=== PATIENT | female | born 1950 | race Caucasian/White ===

== ENCOUNTER 2019-07-19 16:14 | Inpatient (IN) | payer MEDICARE, BC, OTHER, SELFPAY ==
[2019-07-19 14:26] VITALS: BMI 35.9
[2019-07-19 16:15] VITALS: TEMP 36.7; BMI 35.4
[2019-07-19 16:25] VITALS: BP 160/56; PULSE 53; RESP 18; O2SAT 99
--- NOTE | 2019-07-19 16:34 | RAD_ITS ---
STUDY: X-RAY - PELVIS AND LEFT HIP REASON FOR EXAM: Female, 69 years old. Trauma TECHNIQUE: 3 views of the pelvis and hip. COMPARISON: None. FINDINGS: Nondisplaced fracture of the left inferior pubic rami. Questionable nondisplaced fracture of the superior pubic ramus medially adjacent to the pubic symphysis. Total left hip arthroplasty. RAD/HIP, UNI W/ Pelvis 2-3 Views IMPRESSION: Likely acute left pubic rami fractures, as above. Definitive evaluation may be considered with CT as evaluation is somewhat limited by osteopenia. Electronically Signed: Bienvenido Vail, at 17:28 EDT Tel , Service support ,
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
[2019-07-19] MEDS: HYDROcodone Bitartrate/Apap 5/325 Tablet PO (16:39)
--- NOTE | 2019-07-19 18:47 | CM.ED ---
Social Work Consult: D/C Planning Informant: Dr. Ramos Per Dr. Ramos patient is medially cleared but stating to be unable to walk at this time and thus unable to return to home. Met with patient and patient spouse in room. Patient stating to live with spouse in a 1-story home with x2 steps to enter the home. Patient used a cane/walker to get from car to the 2 steps and into the home but after patient is in the home patient is wheelchair bound. Patient stating to believe that patient is unable to perform transfers at this time and will need to go somewhere. Patient stating to have been in [facility] one year ago. Patient stating to be active with [facility]. Patient stating to use a Bi-pap at home. Patient aware that due to time of day unable to complete SNF transfer/placement at this time. Patient to have continued follow-up for placement. Jeronimo Trevino MSW, GARIMA
[2019-07-19 18:48] VITALS: BMI 35.4
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
[2019-07-19 18:50] VITALS: BP 159/68; PULSE 53; RESP 18; O2SAT 99
[2019-07-19 19:09] VITALS: BP 162/64; PULSE 52; RESP 16; O2SAT 95
[2019-07-19 20:06] VITALS: BP 145/58; PULSE 52; RESP 16; TEMP 37.1; O2SAT 96
[2019-07-19 20:15] VITALS: BMI 36.1
[2019-07-19 20:20] VITALS: PULSE 52; RESP 16; O2SAT 97
[2019-07-19] MEDS: oxyCODONE 5 MG Tablet PO (20:57)
[2019-07-19 21:45] LABS: Bedside Glucose 121 mg/dL (70-110)
[2019-07-19] MEDS: Ranolazine 500 MG Tablet 1000 MG PO (21:46)
[2019-07-19] MEDS: Atorvastatin Calcium 10 MG Tablet PO (21:47)
[2019-07-19] MEDS: Pantoprazole Sodium 40 MG Tablet PO (21:47)
[2019-07-19] MEDS: Cholestyramine/Sucrose 4 GM/PACKET PO (21:47)
[2019-07-20] VITALS (7 sets, daily range): BP systolic 129–169; BP diastolic 56–72; PULSE 52–60; RESP 16–20; TEMP 36.9–37.6; O2SAT 97–98
[2019-07-20] MEDS: Levothyroxine 75 MCG Tablet PO (06:05)
[2019-07-20 06:52] LABS: Absolute Lymphocyte Count 0.58 X10^3/uL (0.83-4.51); Absolute Neutrophil Count 2.9 X10^3/uL (2.0-7.7); Eosinophil# 0.07 X10^3/uL; Eosinophils% 1.8 % (0-5); Hematocrit 20.8 % (37-47); Hemoglobin 6.5 g/dL (12.0-15.0); Lymphocyte # 0.58 X10^3/ul (4.0); Lymphocyte % 15.3 % (19-41); Mean Corp Hgb Conc 31.3 g/dL (32-36); Mean Corpuscular Hgb 30.2 pg (27.0-32.0); Mean Corpuscular Volume 96.7 fL (81-99); Mean Platelet Vol. 9.7 fl (6.2-12.0); Monocyte# 0.21 X10^3/uL; Monocyte% 5.5 % (0-10); NRBC Flagged by Analyzer 0 % (0-5); Neutrophil # 2.89 X10^3/uL (2.7-7.7); Neutrophil % 76.3 % (47-70); POSITIVE DIFFERENTIAL YES; Platelet Count 128 K/mm3 (150-450); RBC Distribution Width CV 16.3 % (11.6-14.6); RBC Distribution Width SD 56.9 fl (35.1-43.9); Red Blood Count 2.15 M/mm3 (4.2-5.4); White Blood Count 3.8 K/mm3 (4.4-11.0)
[2019-07-20 06:56] LABS: Bedside Glucose 128 mg/dL (70-110)
[2019-07-20 06:59] LABS: Differential Indicated SCAN CRITERIA MET
[2019-07-20 07:08] LABS: Anion Gap 7 (5-15); BUN 42 mg/dL (7-18); BUN/Creat Ratio 14.9 RATIO (10-20); Calcium,Total 8.2 mg/dL (8.5-10.1); Chloride 119 mmol/L (98-107); Creatinine, Serum 2.81 mg/dL (0.55-1.02); EST Glomerular Filtration Rate 18 mL/min (>60); Est Glom Filt Rate - Afr Amer 22 mL/min (>60); Glucose 131 mg/dL (74-106); Potassium 5.2 mmol/L (3.5-5.1); Sodium Level 142 mmol/L (136-145)
[2019-07-20 07:21] LABS: Differential Comment SCANNED; Hypochromasia 1+; Macrocytosis 1+; Microcytosis 2+
--- NOTE | 2019-07-20 07:31 | PCM.PROGNOTE ---
Patient Problems: Active and Suspected Problems (Last Updated 07/19/19 @ 14:44 by Viv Toribio) Pancytopenia (Acute) Lymphadenopathy, axillary (Acute) Subjective: CC: Left hip pain Patient is a 69-year-old lady who presented with hip pain following a fall. She was found to have nondisplaced left inferior and superior pubic rami fracture admitted to regular nursing for further management Objective: GENERAL: cooperative HEENT: Atraumatic; EYES; Anicteric, Normal Conjunctiva NECK; supple, normal thyroid, RESPIRATORY: Diminished to auscultation CARDIOVASCULAR: Regular S1 S2, GI: soft, normoactive bowel sounds, : No Renal angle tenderness; EXTREMITIES: No edema, no clubbing, MUSCULOSKELETAL: no muscle waisting NEURO: Awake; no lateralizing signs. SKIN: No Rash PSYCH; Flat affect - Physical Exam Vitals/I&O's: Vital Signs Temp Pulse Resp BP Pulse Ox 98.8 F 55 L 16 139/72 H 98 07/20/19 02:01 07/20/19 04:17 07/20/19 02:01 07/20/19 02:01 07/20/19 02:01 Oxygen Flow Rate (L/min) 2 Oxygen Delivery Method Nasal Cannula Weight: 98.6 kg Body Mass Index (BMI) 36.1 Intake and Output for Last 24 Hours 07/18/19 07/19/19 07/20/19 23:59 23:59 23:59 Intake Total 500 / 500 Output Total 200 / 200 Balance 300 / 300 Laboratory Results 07/19/19 21:38: POC Glucose 121 H 07/20/19 05:58: WBC 3.8 L, RBC 2.15 L, Hgb 6.5 L, Hct 20.8 L, MCV 96.7, MCH 30.2, MCHC 31.3 L, RDW Std Deviation 56.9 H, RDW Coeff of Rachel 16.3 H, Plt Count 128 L, MPV 9.7, Immature Gran % (Auto) 1.100 H, Neut % (Auto) 76.3 H, Lymph % (Auto) 15.3 L, [place] % (Auto) 5.5, Eos % (Auto) 1.8, Baso % (Auto) 0.0, Absolute Neuts (auto) 2.9, Absolute Lymphs (auto) 0.58 L, Nucleated RBC % 0, Differential Comment SCANNED, Diff Path Review May foll, Hypochromasia 1+, Microcytosis 2+, Macrocytosis 1+ 07/20/19 05:58: Sodium 142, Potassium 5.2 H, Chloride 119 H, Carbon Dioxide 16.0 L, Anion Gap 7, BUN 42 H, Creatinine 2.81 H, Estim Creat Clear Calc 17.00, Est GFR (MDRD) Af Amer 22 L, Est GFR (MDRD) Non-Af 18 L, BUN/Creatinine Ratio 14.9, Glucose 131 H, Calcium 8.2 L 07/20/19 06:52: POC Glucose 128 H Current Medications Amlodipine Besylate (Norvasc) 5 mg PO DAILY [facility] Atenolol (Tenormin (Beta Tessa)) 100 mg PO DAILY [facility] Atorvastatin Calcium (Lipitor) 10 mg PO QHS [facility] Last Admin: 07/19/19 21:47 Dose: 10 mg Documented by: Cholestyramine Resin (Questran 4gm Packet) 4 gm PO BID [facility] Last Admin: 07/19/19 21:47 Dose: 4 gm Documented by: Clopidogrel Bisulfate (Plavix) 75 mg PO DAILY [facility] Dextrose (D50w Syringe) 0 gm IV X1 PRN; Protocol PRN Reason: Hypoglycemia Furosemide (Lasix) 40 mg PO DAILY PRN PRN Reason: SWELLING Glucagon () 1 mg IM .X1 PRN PRN Reason: Hypoglycemia Insulin Human Lispro (Humalog Kwikpen (Bkc)) 0 unit SC ACHS [facility]; Protocol Last Admin: 07/20/19 06:54 Dose: Not Given Documented by: Isosorbide Mononitrate (Imdur) 120 mg PO DAILY [facility] Levothyroxine Sodium (Synthroid) 75 mcg PO DAILY@0600 [facility] Last Admin: 07/20/19 06:05 Dose: 75 mcg Documented by: Linagliptin (Tradjenta) 5 mg PO DAILY [facility] Melatonin (Melatonin) 3 mg PO QHS PRN PRN Reason: SLEEP Morphine Sulfate () 2 mg IV Q3H PRN PRN PRN Reason: Pain Score 6-10/10 Nitroglycerin (Nitro-Dur) 0.4 mg TRANSDERM. DAILY [facility] Nitroglycerin (Nitrostat) 0.4 mg SUBLINGUAL Q5M PRN PRN Reason: ANGINA Nutritional Formula (Lactose Free) (Glucerna Shake) 120 ml PO 4X/DAY [facility] Last Admin: 07/19/19 21:39 Dose: Not Given Documented by: Oxycodone HCl (Oxyir) 5 mg PO Q4H PRN PRN PRN Reason: Pain Score 4-5/10 Last Admin: 07/19/19 20:57 Dose: 5 mg Documented by: Pantoprazole Sodium (Protonix) 40 mg PO BID [facility] Last Admin: 07/19/19 21:47 Dose: 40 mg Documented by: Paroxetine HCl (Paxil) 30 mg PO DAILY [facility] Promethazine HCl (Phenergan Suppository) 25 mg RECTAL Q4H PRN PRN PRN Reason: NAUSEA Promethazine HCl (Phenergan Tablet) 25 mg PO Q6H PRN PRN PRN Reason: NAUSEA Ranolazine (Ranexa) 1,000 mg PO BID [facility] Last Admin: 07/19/19 21:46 Dose: 1,000 mg Documented by: Sodium Chloride () 10 - 40 ml IV UD PRN PRN Reason: SALINE FLUSH Medical Necessity - Tobacco Use Smoking Status: Never smoker Tobacco Use: Non-smoker, Secondhand Assessment/Plan All Active Problems (Last Updated 07/19/19 @ 14:44 by Viv Toribio) Pancytopenia (Acute) Lymphadenopathy, axillary (Acute) Patient is a 69-year-old lady who presented with hip pain following a fall. She was found to have nondisplaced left inferior and superior pubic rami fracture admitted to regular nursing for further management 1. Non-syncopal mechanical fall -with resultant Nondisplaced left inferior and superior pubic rami fracture admitted to regular nursing floor for pain management. Also requested for PT OT eval as well as director of social media marketing to assist with disposition 2. Physical debility due to above -Management as discussed above 3. Pancytopenia ?Patient is being followed by oncology with she is currently being worked up 4. Hypertension ~ blood pressure controlled, home medications continued with dose adjustment as needed 5. Hypothyroidism ~patient is on levothyroxine home dose continued 6. Chronic kidney disease stage IV with baseline creatinine of 2.8 7. Hyperkalemia secondary to above Subsequent lab ordered for monitoring with plans to treat aggressively if potassium levels continue to rise 8. Diabetes mellitus type II ~Complications including diabetic nephropathy, placed on long acting insulin, Accu-Cheks a.c. and at bedtime and covered with sliding scale insulin 9. Obstructive sleep apnea on CPAP at night 10. Coronary artery disease -With previous CABG and subsequent stent placement 11. Obesity with BMI of 36.2 Weight loss advised 12. DVT prophylaxis SCDs Code Visit OBSV E&M: 90849 Subsequent observation care L3
[2019-07-20] MEDS: LINAGLIPTIN 5 MG TABLET PO (09:08)
[2019-07-20] MEDS: oxyCODONE 5 MG Tablet PO ×2 (09:08→17:14)
[2019-07-20] MEDS: amLODIPine 5 MG Tablet PO (09:09)
[2019-07-20] MEDS: PARoxetine 10 MG Tablet 30 MG PO (09:09)
[2019-07-20] MEDS: Glucerna Shake 120 ML LIQUID PO ×2 (09:10→12:42)
[2019-07-20] MEDS: Ranolazine 500 MG Tablet 1000 MG PO ×2 (09:11→21:46)
[2019-07-20] MEDS: Pantoprazole Sodium 40 MG Tablet PO ×2 (09:12→21:46)
[2019-07-20] MEDS: Atenolol 100 MG Tablet PO (09:13)
[2019-07-20] MEDS: Clopidogrel Bisulfate 75 MG Tablet PO (09:17)
--- NOTE | 2019-07-20 10:30 | CASEMGMT ---
Addendum entered by Rita Parks 07/20/19 10:54: SW had the thought that maybe pt could go to at discharge. SW placed a call to Siena with [facility] who states she has no beds available on and won't have any until Wednesday of next week. Original Note: Social Work Assessment Referral Date: 07/19/2019 Date of Assessment: 07/20/2019 Reason for consult: SNF placement Informant: SW Personal Status: SW met with pt and introduced self and role at [facility]. Pt is alert and orientated x3, has guest present in room. Pt gave this worker permission to speak to her in front of her guest. Pt states that she lives with her and grandson in a one story home with about 3 steps to enter. Pt states she does have a basement in the home. PCP is Dr. Michael Moraes and preferred pharmacy is [facility] in [place], [place]. DME include cane, walker and wheelchair. Pt states that she was previously independent with [facility] and states that she has been using her wheelchair more at home as she fell last week. Pt states that she doesn't use oxygen at home and states she only uses a c-pap at home. Pt states that she has a nurse that comes in once a week through [facility]. Pt states that she went to [facility] last year. Substance Abuse Hx: Pt denied Mental Health Hx: Pt denied SW spoke with pt regarding discharge plans. Pt states well I should probably go to a SNF. SW educated pt on Medicare guidelines and three midnight stay at [facility]. SW informed pt that there has to be a medical reason to keep pt three midnights and at this time, physician states pt will not get qualifying stay. SW explained that going to a SNF will be private pay then if pt doesn't need three midnight stay. Pt states well I guess I will be going home then. SW explained pending medicaid but informs pt that this worker cannot guarantee pt will get approved medicaid and then it will also be private pay. Pt states I probably won't get approved for medicaid. SW educated pt on HHC with PT/OT but informed pt that HHC won't be in everyday. SW spoke with pt regarding private duty aides. SW informed pt that PT/OT will work with pt and make recommendations for pt. SW informed pt that once PT/OT works with pt this worker will be back in to speak with pt regarding discharge plans. Pt states understanding, denied additional needs or concerns at this time. Plan: TBD. Pt will likely not get qualifying stay for Medicare to go to SNF. Pt states she will not pay privately for SNF. PT/OT to work with pt and make recommendations. Rita Parks AIR QUALITY INSTRUMENT SPECIALIST, HYGIENE COORDINATOR
[2019-07-20 10:55] LABS: Bedside Glucose 122 mg/dL (70-110)
[2019-07-20 13:15] LABS: Pathologist Review Reviewed
--- NOTE | 2019-07-20 15:51 | CASEMGMT ---
Addendum entered by Rita Parks 07/20/19 16:47: SW received call from Kika at [facility] stating she is able to accept pt. SW informed Kika that this worker is not sure if pt will get qualifying stay under Medicare or if it will be private pay. SW informed Kika that this worker will know more tomorrow. Original Note: Social Work Note SW spoke with PT/OT who are recommending SNF for pt as pt was assist of two. SW met with pt. SW informed pt that PT/OT are recommending SNF but again informed pt that that doesn't guarantee pt will get three midnight stay in hospital to pay for SNF. SW informed pt that physician could tell pt tomorrow that she is medically cleared for discharge and then pt would need to pay privately for SNF. SW asked pt if she is able to afford private pay for SNF. Pt states she will need to speak with her about private pay. SW provided pt with list of SNF that accept pt's insurance. Pt states she would like a referral sent [facility]. SW attempted to call [facility] twice but there was no answer. SW faxed referral to [facility]. Physician updated. Plan: [facility] pending acceptance. If pt discharges before Wednesday to SNF it will be private pay for SNF. Rita Parks TAILINGS DAM LABORER, ENTREPRENEURIAL FINANCE PROFESSOR
--- NOTE | 2019-07-20 15:54 | CASEMGMT ---
TOÑO QUEEN NOTE: Call placed to [facility] and notified them of pt admission and possible SNF @ d/c. CM to follow and update [facility] of d/c plan. [facility]: PH: [phone] Rogerio GREEN RN CM
[2019-07-20 16:01] LABS: Bedside Glucose 144 mg/dL (70-110)
--- NOTE | 2019-07-20 16:06 | CHAPLAIN ---
Type of Pastoral Visit _x__ Initial Visit ___ Follow-up Visit ___ On-call Visit ___ General Patient Visit ___ Spiritual Assessment ___ Family Conference ___ Bereavement ___ Rapid Response ___ Code Blue ___ Other (describe below) Pastoral Care Referral From _x__ Patient ___ Family ___ Nurse ___ Physician ___ Marketing Technologist ___ Building Tech ___ Other (describe below) Sacrament/Intervention _x__ Active listening ___ Anointing ___ Muslim ___ Bereavement ___ Communion ___ Julia exploration ___ _x__ Life review _x__ Prayer ___ Reconciliation ___ Sacrament of Sick _x__ Supportive presence ___ Wedding ___ Other (describe below) Pastoral Comments
[2019-07-20] MEDS: Morphine 2 MG/ML Syringe IV (20:15)
[2019-07-20] MEDS: 0.9% Saline Lock 10 ML Syringe IV (20:16)
[2019-07-20] MEDS: Atorvastatin Calcium 10 MG Tablet PO (21:46)
[2019-07-20 23:16] LABS: Bedside Glucose 134 mg/dL (70-110)
[2019-07-21] VITALS (10 sets, daily range): BP systolic 131–168; BP diastolic 48–74; PULSE 48–52; RESP 16–20; TEMP 36.8–37.3; O2SAT 90–100
--- NOTE | 2019-07-21 02:35 | CPS ---
bled in 2 lpm oxygen into CPAP
[2019-07-21] MEDS: Levothyroxine 75 MCG Tablet PO (05:19)
[2019-07-21 06:35] LABS: Absolute Lymphocyte Count 0.91 X10^3/uL (0.83-4.51); Absolute Neutrophil Count 2.4 X10^3/uL (2.0-7.7); Eosinophil# 0.09 X10^3/uL; Eosinophils% 2.5 % (0-5); Hematocrit 21.4 % (37-47); Hemoglobin 6.5 g/dL (12.0-15.0); Lymphocyte # 0.91 X10^3/ul (4.0); Lymphocyte % 25.1 % (19-41); Mean Corp Hgb Conc 30.4 g/dL (32-36); Mean Corpuscular Hgb 30.1 pg (27.0-32.0); Mean Corpuscular Volume 99.1 fL (81-99); Mean Platelet Vol. 10.1 fl (6.2-12.0); Monocyte# 0.21 X10^3/uL; Monocyte% 5.8 % (0-10); NRBC Flagged by Analyzer 0.6 % (0-5); Neutrophil # 2.39 X10^3/uL (2.7-7.7); Neutrophil % 65.8 % (47-70); Platelet Count 118 K/mm3 (150-450); RBC Distribution Width CV 16.3 % (11.6-14.6); RBC Distribution Width SD 57.3 fl (35.1-43.9); Red Blood Count 2.16 M/mm3 (4.2-5.4); White Blood Count 3.6 K/mm3 (4.4-11.0)
[2019-07-21 06:55] LABS: Anion Gap 9 (5-15); BUN 50 mg/dL (7-18); BUN/Creat Ratio 14.2 RATIO (10-20); Chloride 118 mmol/L (98-107); Creatinine, Serum 3.53 mg/dL (0.55-1.02); EST Glomerular Filtration Rate 14 mL/min (>60); Est Glom Filt Rate - Afr Amer 17 mL/min (>60); Estimated Creatinine Clearance 13.53 ml/min; Glucose 118 mg/dL (74-106); Magnesium 1.8 mg/dL (1.6-2.6); Potassium 5.4 mmol/L (3.5-5.1); Sodium Level 140 mmol/L (136-145)
[2019-07-21 07:01] LABS: Bedside Glucose 109 mg/dL (70-110)
--- NOTE | 2019-07-21 07:31 | PN_ITS ---
Patient Problems: Active and Suspected Problems (Last Updated 07/19/19 @ 14:44 by Viv Toribio) Pancytopenia (Acute) Lymphadenopathy, axillary (Acute) Subjective: CC follow-up pelvic fracture Patient seen hemoglobin is down to 6.5, platelets 118 with potassium up to 5.4 Objective: GENERAL: cooperative HEENT: Atraumatic; EYES; Anicteric, Normal Conjunctiva NECK; supple, normal thyroid, RESPIRATORY: Diminished to auscultation CARDIOVASCULAR: Regular S1 S2, GI: soft, normoactive bowel sounds, : No Renal angle tenderness; EXTREMITIES: No edema, no clubbing, MUSCULOSKELETAL: no muscle waisting NEURO: Awake; no lateralizing signs. SKIN: No Rash PSYCH; Flat affect Vitals/I&O's: Vital Signs Temp Pulse Resp BP Pulse Ox 98.6 F 49 L 18 154/61 H 97 07/21/19 05:17 07/21/19 05:17 07/21/19 05:17 07/21/19 05:17 07/21/19 05:17 Oxygen Flow Rate (L/min) 2 Oxygen Delivery Method CPAP Weight: 98.6 kg Body Mass Index (BMI) 36.1 Intake and Output for Last 24 Hours 07/19/19 07/20/19 07/21/19 23:59 23:59 23:59 Intake Total 740 / 1220 780 / 780 Output Total 200 / 200 200 / 200 Balance 540 / 1020 580 / 580 Laboratory Results 07/20/19 05:58: Diff Path Review Reviewed 07/20/19 10:46: POC Glucose 122 H 07/20/19 15:56: POC Glucose 144 H 07/20/19 21:39: POC Glucose 134 H 07/21/19 05:44: WBC 3.6 L, RBC 2.16 L, Hgb 6.5 L, Hct 21.4 L, MCV 99.1 H, MCH 30.1, MCHC 30.4 L, RDW Std Deviation 57.3 H, RDW Coeff of Rachel 16.3 H, Plt Count 118 L, MPV 10.1, Immature Gran % (Auto) 0.800, Neut % (Auto) 65.8, Lymph % (Auto) 25.1, [place] % (Auto) 5.8, Eos % (Auto) 2.5, Baso % (Auto) 0.0, Absolute Neuts (auto) 2.4, Absolute Lymphs (auto) 0.91, Nucleated RBC % 0.6 07/21/19 05:44: Sodium 140, Potassium 5.4 H, Chloride 118 H, Carbon Dioxide 13.0 L, Anion Gap 9, BUN 50 H, Creatinine 3.53 H, Estim Creat Clear Calc 13.53, Est GFR (MDRD) Af Amer 17 L, Est GFR (MDRD) Non-Af 14 L, BUN/Creatinine Ratio 14.2, Glucose 118 H, Calcium 8.0 L, Magnesium 1.8 07/21/19 06:46: POC Glucose 109 Current Medications Amlodipine Besylate (Norvasc) 5 mg PO DAILY [facility] Last Admin: 07/20/19 09:09 Dose: 5 mg Documented by: Atenolol (Tenormin (Beta Tessa)) 100 mg PO DAILY [facility] Last Admin: 07/20/19 09:13 Dose: 100 mg Documented by: Atorvastatin Calcium (Lipitor) 10 mg PO QHS [facility] Last Admin: 07/20/19 21:46 Dose: 10 mg Documented by: Cholestyramine Resin (Questran 4gm Packet) 4 gm PO BID [facility] Last Admin: 07/20/19 21:49 Dose: Not Given Documented by: Clopidogrel Bisulfate (Plavix) 75 mg PO DAILY [facility] Last Admin: 07/20/19 09:17 Dose: 75 mg Documented by: Dextrose (D50w Syringe) 0 gm IV X1 PRN; Protocol PRN Reason: Hypoglycemia Furosemide (Lasix) 40 mg PO DAILY PRN PRN Reason: SWELLING Glucagon () 1 mg IM .X1 PRN PRN Reason: Hypoglycemia Insulin Human Lispro (Humalog Kwikpen (Bkc)) 0 unit SC [facility]; Protocol Last Admin: 07/21/19 07:01 Dose: Not Given Documented by: Isosorbide Mononitrate (Imdur) 120 mg PO DAILY [facility] Last Admin: 07/20/19 09:12 Dose: 120 mg Documented by: Levothyroxine Sodium (Synthroid) 75 mcg PO DAILY@0600 [facility] Last Admin: 07/21/19 05:19 Dose: 75 mcg Documented by: Linagliptin (Tradjenta) 5 mg PO DAILY [facility] Last Admin: 07/20/19 09:08 Dose: 5 mg Documented by: Melatonin (Melatonin) 3 mg PO QHS PRN PRN Reason: SLEEP Morphine Sulfate () 2 mg IV Q3H PRN PRN PRN Reason: Pain Score 6-10/10 Last Admin: 07/20/19 20:15 Dose: 2 mg Documented by: Nitroglycerin (Nitro-Dur) 0.4 mg TRANSDERM. DAILY [facility] Last Admin: 07/20/19 09:14 Dose: 0.4 mg Documented by: Nitroglycerin (Nitrostat) 0.4 mg SUBLINGUAL Q5M PRN PRN Reason: ANGINA Nutritional Formula (Lactose Free) (Glucerna Shake) 120 ml PO 4X/DAY [facility] Last Admin: 07/20/19 21:42 Dose: Not Given Documented by: Oxycodone HCl (Oxyir) 5 mg PO Q4H PRN PRN PRN Reason: Pain Score 4-5/10 Last Admin: 07/20/19 17:14 Dose: 5 mg Documented by: Pantoprazole Sodium (Protonix) 40 mg PO BID [facility] Last Admin: 07/20/19 21:46 Dose: 40 mg Documented by: Paroxetine HCl (Paxil) 30 mg PO DAILY [facility] Last Admin: 07/20/19 09:09 Dose: 30 mg Documented by: Promethazine HCl (Phenergan Suppository) 25 mg RECTAL Q4H PRN PRN PRN Reason: NAUSEA Promethazine HCl (Phenergan Tablet) 25 mg PO Q6H PRN PRN PRN Reason: NAUSEA Ranolazine (Ranexa) 1,000 mg PO BID [facility] Last Admin: 07/20/19 21:46 Dose: 1,000 mg Documented by: Sodium Chloride () 10 - 40 ml IV UD PRN PRN Reason: SALINE FLUSH Last Admin: 07/20/19 20:16 Dose: 10 ml Documented by: STROKE Vital Signs/Narrative: Vital Signs Temp Pulse Resp BP Pulse Ox 07/21/19 05:17 98.6 F 49 L 18 154/61 H 97 Medical Necessity - Tobacco Use Smoking Status: Never smoker Tobacco Use: Non-smoker, Secondhand Assessment/Plan All Active Problems (Last Updated 07/19/19 @ 14:44 by Viv Toribio) Pancytopenia (Acute) Lymphadenopathy, axillary (Acute) Patient is a 69-year-old lady who presented with hip pain following a fall. She was found to have nondisplaced left inferior and superior pubic rami fracture admitted to regular nursing for further management 1. Non-syncopal mechanical fall -with resultant Nondisplaced left inferior and superior pubic rami fracture admitted to regular nursing floor for pain management. Also requested for PT OT eval as well as social services specialist to assist with disposition 2. Severe anemia Part of patient pancytopenia which is currently being worked up as outpatient ;the patient hemoglobin having dropped to 6.5 and order was given for patient to be transfused 1 unit PRBC with subsequent H&H ordered 3. Chronic kidney disease stage IV ~baseline creatinine reported to be 2.8 Patient kidney function and subsequently worsen following admission started on IV fluid was on Lasix discontinued ordered ultrasound of the kidneys and consult placed to nephrology 4. Hyperkalemia ~secondary to CKD stage IV and order was given for patient to receive Kayexalate 5. Pancytopenia (Thrombocytopenia anemia as well as mild leukopenia) ?Patient is being followed by oncology with she is currently being worked up 6. Hypertension ~ blood pressure controlled, home medications continued with dose adjustment as needed 7. Hypothyroidism ~patient is on levothyroxine home dose continued 8. Diabetes mellitus type II ~Complications including diabetic nephropathy, placed on long acting insulin, Accu-Cheks a.c. and at bedtime and covered with sliding scale insulin 9. Obstructive sleep apnea on CPAP at night 10. Coronary artery disease -With previous CABG and subsequent stent placement 11. Obesity with BMI of 36.2 Weight loss advised 12. Physical debility ?Secondary to patient pelvic fracture undergoing PT OT social services specialist consulted with plans for patient to be transferred to assisted facility when medically stable 13. DVT prophylaxis SCDs Avoided the use of chemical prophylaxis in view of patient low platelet count Advance planning; did discuss with the patient and family regarding advanced directives as well as CODE STATUS. Did explain the various scenarios involved ( FULL CODE, DNR CCA, DNR CCA with no intubation, and DNR CC and what each meant) patient elected to remain full code with CPR and intubation if indicated. Order was placed. Time spent on discussion 18 minutes. Code Visit Inpatient E&M: 20442 Subs Hosp L3 Procedures: 63340 Advncd Care Plan 30 Min
--- NOTE | 2019-07-21 08:33 | US_ITS ---
STUDY: RENAL ULTRASOUND - COMPLETE REASON FOR EXAM: Female, 69 years old. Renal insufficiency. TECHNIQUE: Ultrasound evaluation of the kidneys was performed with real-time and static nelson-scale imaging. COMPARISON: None. FINDINGS: RIGHT KIDNEY: Normal location of the right kidney, which is normal in size. The right kidney measures 10.8 x 5.5 x 5.6 cm. There is diffuse thinning of the renal cortex with increased echogenicity. There is no right renal mass or cyst. There are no right renal calculi. There is no right hydronephrosis. DISTAL RIGHT URETER: There is non-visualization of the distal right ureter. There is no demonstrated right ureterovesical junction calculus. There is a visualized right ureteral jet. LEFT KIDNEY: Normal location of the left kidney, which is normal in size. The left kidney measures 11.1 x 5.8 x 5.4 cm. There is diffuse thinning of the renal cortex with increased echogenicity. There is no left renal mass or cyst. There are no left renal calculi. There is no left hydronephrosis. DISTAL LEFT URETER: There is non-visualization of the distal left ureter. There is no demonstrated left ureterovesical junction calculus. There is a visualized left ureteral jet. BLADDER: The distended urinary bladder has a volume of 167 ml. There is a normal wall thickness of the distended urinary bladder. There is no demonstrated mass within the urinary bladder. There are no demonstrated bladder calculi. US/Kidney and Bladder IMPRESSION: Bilateral cortical thinning with increased echogenicity consistent with chronic medical renal disease. No acute abnormalities. Electronically Signed: Mk Shukla MD at 17:25 EDT , Service support ,
[2019-07-21] MEDS: Sodium Polystyrene Sulfonate 15 GM/60 ML UDC 30 GM PO (08:39)
--- NOTE | 2019-07-21 11:16 | CASEMGMT ---
Social Work Note Physician is keeping pt until Wednesday. LAKIA met with pt and pt's Juan present in room. Pt gave this worker permission to speak to her in front of her guest. LAKIA updated pt and pt's that [facility] able [facility] accept pt and physician plans on discharging pt Wednesday. Pt and Martinez state understanding, denied additional needs or concerns at this time. LAKIA placed a call to [facility] and spoke with Kika and updated Kika that the plan is for pt to discharge to SNF on Wednesday. Kika states understanding. LAKIA completed [facility] in [facility] and placed on pt's chart with green sheet and transportation form. Plan: [facility] skilled Wednesday Rita Parks TRAFFIC RATE CLERK, VALUE STREAM LEADER
[2019-07-21 12:25] LABS: Bedside Glucose 128 mg/dL (70-110)
[2019-07-21] MEDS: LINAGLIPTIN 5 MG TABLET PO (12:37)
[2019-07-21] MEDS: Ranolazine 500 MG Tablet 1000 MG PO ×2 (12:37→22:12)
[2019-07-21] MEDS: Clopidogrel Bisulfate 75 MG Tablet PO (12:37)
[2019-07-21] MEDS: PARoxetine 10 MG Tablet 30 MG PO (12:37)
[2019-07-21] MEDS: Pantoprazole Sodium 40 MG Tablet PO ×2 (12:38→22:12)
[2019-07-21] MEDS: amLODIPine 5 MG Tablet PO (12:39)
[2019-07-21] MEDS: oxyCODONE 5 MG Tablet PO ×2 (12:41→22:11)
--- NOTE | 2019-07-21 12:51 | NURSING ---
1147 1 unit prbc iniated at 15ml/hr. will not let said nurse go back and edit TAR.
[2019-07-21] MEDS: 0.9% Normal Saline 1,000 ML 125 ML IV ×2 (16:01→23:33)
[2019-07-21 17:06] LABS: Bedside Glucose 112 mg/dL (70-110)
--- NOTE | 2019-07-21 19:20 | PCM.CONS.R ---
Consultation - Renal 07/21/19 PCP/ Referring MD: Requesting physician: Dr. Santana Primary care physician: Michael Moraes MD Reason for Consultation:: ANY - History of Present Illness History of Present Illness: The patient is a 69 year old F with past history of CAD s/p [place], T2DM, HTN, MARIJA, TONEY with cirrhosis, and hypothyroidism is admitted because of L pubic ramus fracture. She fell off the scooter after visiting her oncologist yesterday. She was being evaluated for pancytopenia. The patient was found to have SCr of 2.82 mg/dL on 07/19. SCr has increased to 3.53 mg/dL today. There is no prior SCr before this admission for comparison. She complains of L hip pain. She denies CP, or SOB at rest. There is no LE edema. She does have distended abdomen with ventral hernia which has been enlarging. She denies nausea, vomiting, or diarrhea. There is no lower urinary tract symptoms. The patient reports a 41 lbs weight loss in the last 6 months which she attributed to poor oral intake. She denies chronic use of NSAID. There is no recent exposure to IV contrast. She was not on ACEI/ARB prior to admission. She has no prior diagnosis of CKD. - Allergies Allergies: Allergies codeine Allergy (Verified 07/19/19 16:15) Unknown - Current Medications Current Medications: Current Medications Amlodipine Besylate (Norvasc) 5 mg PO DAILY [facility] Last Admin: 07/21/19 12:39 Dose: 5 mg Documented by: Atenolol (Tenormin (Beta Tessa)) 100 mg PO DAILY [facility] Last Admin: 07/21/19 12:29 Dose: Not Given Documented by: Atorvastatin Calcium (Lipitor) 10 mg PO QHS [facility] Last Admin: 07/20/19 21:46 Dose: 10 mg Documented by: Cholestyramine Resin (Questran 4gm Packet) 4 gm PO BID [facility] Last Admin: 07/21/19 12:39 Dose: Not Given Documented by: Clopidogrel Bisulfate (Plavix) 75 mg PO DAILY [facility] Last Admin: 07/21/19 12:37 Dose: 75 mg Documented by: Dextrose (D50w Syringe) 0 gm IV X1 PRN; Protocol PRN Reason: Hypoglycemia Glucagon () 1 mg IM .X1 PRN PRN Reason: Hypoglycemia Sodium Chloride () 1,000 mls @ 125 mls/hr IV .Q8H [facility] Stop: 07/23/19 07:29 Last Admin: 07/21/19 16:01 Dose: 125 mls/hr Documented by: Sodium Chloride () 500 mls @ 15 mls/hr IV PRN PRN PRN Reason: Blood Transfusion Insulin Human Lispro (Humalog Kwikpen (Bkc)) 0 unit SC ACHS [facility]; Protocol Last Admin: 07/21/19 16:38 Dose: Not Given Documented by: Isosorbide Mononitrate (Imdur) 120 mg PO DAILY [facility] Last Admin: 07/21/19 12:37 Dose: 120 mg Documented by: Levothyroxine Sodium (Synthroid) 75 mcg PO DAILY@0600 [facility] Last Admin: 07/21/19 05:19 Dose: 75 mcg Documented by: Linagliptin (Tradjenta) 5 mg PO DAILY [facility] Last Admin: 07/21/19 12:37 Dose: 5 mg Documented by: Melatonin (Melatonin) 3 mg PO QHS PRN PRN Reason: SLEEP Morphine Sulfate () 2 mg IV Q3H PRN PRN PRN Reason: Pain Score 6-10/10 Last Admin: 07/20/19 20:15 Dose: 2 mg Documented by: Nitroglycerin (Nitro-Dur) 0.4 mg TRANSDERM. DAILY [facility] Last Admin: 07/21/19 12:38 Dose: 0.4 mg Documented by: Nitroglycerin (Nitrostat) 0.4 mg SUBLINGUAL Q5M PRN PRN Reason: ANGINA Nutritional Formula (Lactose Free) (Glucerna Shake) 120 ml PO 4X/DAY [facility] Last Admin: 07/21/19 16:40 Dose: Not Given Documented by: Oxycodone HCl (Oxyir) 5 mg PO Q4H PRN PRN PRN Reason: Pain Score 4-5/10 Last Admin: 07/21/19 12:41 Dose: 5 mg Documented by: Pantoprazole Sodium (Protonix) 40 mg PO BID [facility] Last Admin: 07/21/19 12:38 Dose: 40 mg Documented by: Paroxetine HCl (Paxil) 30 mg PO DAILY [facility] Last Admin: 07/21/19 12:37 Dose: 30 mg Documented by: Promethazine HCl (Phenergan Suppository) 25 mg RECTAL Q4H PRN PRN PRN Reason: NAUSEA Promethazine HCl (Phenergan Tablet) 25 mg PO Q6H PRN PRN PRN Reason: NAUSEA Ranolazine (Ranexa) 1,000 mg PO BID [facility] Last Admin: 07/21/19 12:37 Dose: 1,000 mg Documented by: Sodium Chloride () 10 - 40 ml IV UD PRN PRN Reason: SALINE FLUSH Last Admin: 07/20/19 20:16 Dose: 10 ml Documented by: - Social History Smoking Status: Never smoker Alcohol: None Drugs: None - Family History Maternal Family History: Family History (Last Updated 07/19/19 @ 14:38 by Viv Toribio) Mother Cancer Review of Systems Constitutional: Reports: Anorexia, Malaise, Fatigue. Denies: Chills, Fever, Night Sweats Eyes: Denies: Blurred vision, Pain, Redness HEENT: Denies: Head Aches, Sinus Congestion, Sinus Drainage Cardiovascular: Denies: Chest Pain, Chest Pressure, Edema, Orthopnea, Palpitations Respiratory: Denies: Cough, Shortness of breath at rest, Sputum production Gastrointestinal: Denies: Abdominal Pain, Diarrhea, Nausea, Vomiting Genitourinary: Denies: Dysuria, Frequency, Hematuria, Hesitancy, Incontinence, Urgency Musculoskeletal: Reports: Joint Pain, Joint Tenderness. Denies: Arm Pain, Foot Pain, Leg Pain Skin: Denies: Rash, Skin Changes, Wounds Neurological: Reports: Balance problems. Denies: Difficulty swallowing, Focal weakness, Numbness, Tingling, Tremor, Seizures Psychiatric: Denies: Anxiety, Depression, Homicidal Ideations, Suicidal Ideations Hematologic/ Lymphatic: Denies: Easy Bruising, Easy Bleeding Patient Problems: Active and Suspected Problems (Last Updated 07/19/19 @ 14:44 by Viv Toribio) Pancytopenia (Acute) Lymphadenopathy, axillary (Acute) - Physical Exam Vitals/I&O's: Vital Signs Temp Pulse Resp BP Pulse Ox 98.6 F 51 L 18 150/60 H 98 07/21/19 16:10 07/21/19 16:10 07/21/19 16:10 07/21/19 16:10 07/21/19 16:10 Oxygen Flow Rate (L/min) 2 Oxygen Delivery Method CPAP Weight: 98.6 kg Body Mass Index (BMI) 36.1 Intake and Output for Last 24 Hours 07/19/19 07/20/19 07/21/19 23:59 23:59 23:59 Intake Total 740 / 1220 1420 / 1420 Output Total 200 / 200 325 / 325 Balance 540 / 1020 1095 / 1095 General: Alert, Oriented x3, Cooperative HEENT: Atraumatic, PERRLA, EOMI, Normocephalic Oral: Moist Mucosa Neck: Supple, No JVD Lungs: Clear to auscultation, No wheeze Cardiovascular: Regular rate, Regular Rhythm, Normal S1, Normal S2, No murmurs Abdomen: Bowel Sounds Present, Non Tender, Distended, Hernia - ventral Extremities: No clubbing, No cyanosis, No edema Skin: No rashes, No breakdown Musculoskeletal: No Tenderness to Palpation of Joints or Extremities Lymphatic: No Cervical, Supraclavicular, or Inguinal Adenopathy Neurological: Cranial nerves II-XII grossly intact Laboratory Results 07/20/19 21:39: POC Glucose 134 H 07/21/19 05:44: WBC 3.6 L, RBC 2.16 L, Hgb 6.5 L, Hct 21.4 L, MCV 99.1 H, MCH 30.1, MCHC 30.4 L, RDW Std Deviation 57.3 H, RDW Coeff of Rachel 16.3 H, Plt Count 118 L, MPV 10.1, Immature Gran % (Auto) 0.800, Neut % (Auto) 65.8, Lymph % (Auto) 25.1, [place] % (Auto) 5.8, Eos % (Auto) 2.5, Baso % (Auto) 0.0, Absolute Neuts (auto) 2.4, Absolute Lymphs (auto) 0.91, Nucleated RBC % 0.6 07/21/19 05:44: Sodium 140, Potassium 5.4 H, Chloride 118 H, Carbon Dioxide 13.0 L, Anion Gap 9, BUN 50 H, Creatinine 3.53 H, Estim Creat Clear Calc 13.53, Est GFR (MDRD) Af Amer 17 L, Est GFR (MDRD) Non-Af 14 L, BUN/Creatinine Ratio 14.2, Glucose 118 H, Calcium 8.0 L, Magnesium 1.8 07/21/19 06:46: POC Glucose 109 07/21/19 07:45: Blood Type O POSITIVE, Antibody Screen NEGATIVE, Crossmatch See Detail 07/21/19 12:19: POC Glucose 128 H 07/21/19 16:37: POC Glucose 112 H Current Medications Amlodipine Besylate (Norvasc) 5 mg PO DAILY [facility] Last Admin: 07/21/19 12:39 Dose: 5 mg Documented by: Atenolol (Tenormin (Beta Tessa)) 100 mg PO DAILY [facility] Last Admin: 07/21/19 12:29 Dose: Not Given Documented by: Atorvastatin Calcium (Lipitor) 10 mg PO QHS [facility] Last Admin: 07/20/19 21:46 Dose: 10 mg Documented by: Cholestyramine Resin (Questran 4gm Packet) 4 gm PO BID [facility] Last Admin: 07/21/19 12:39 Dose: Not Given Documented by: Clopidogrel Bisulfate (Plavix) 75 mg PO DAILY [facility] Last Admin: 07/21/19 12:37 Dose: 75 mg Documented by: Dextrose (D50w Syringe) 0 gm IV X1 PRN; Protocol PRN Reason: Hypoglycemia Glucagon () 1 mg IM .X1 PRN PRN Reason: Hypoglycemia Sodium Chloride () 1,000 mls @ 125 mls/hr IV .Q8H [facility] Stop: 07/23/19 07:29 Last Admin: 07/21/19 16:01 Dose: 125 mls/hr Documented by: Sodium Chloride () 500 mls @ 15 mls/hr IV PRN PRN PRN Reason: Blood Transfusion Insulin Human Lispro (Humalog Kwikpen (Bkc)) 0 unit SC ACHS [facility]; Protocol Last Admin: 07/21/19 16:38 Dose: Not Given Documented by: Isosorbide Mononitrate (Imdur) 120 mg PO DAILY [facility] Last Admin: 07/21/19 12:37 Dose: 120 mg Documented by: Levothyroxine Sodium (Synthroid) 75 mcg PO DAILY@0600 [facility] Last Admin: 07/21/19 05:19 Dose: 75 mcg Documented by: Linagliptin (Tradjenta) 5 mg PO DAILY [facility] Last Admin: 07/21/19 12:37 Dose: 5 mg Documented by: Melatonin (Melatonin) 3 mg PO QHS PRN PRN Reason: SLEEP Morphine Sulfate () 2 mg IV Q3H PRN PRN PRN Reason: Pain Score 6-10/10 Last Admin: 07/20/19 20:15 Dose: 2 mg Documented by: Nitroglycerin (Nitro-Dur) 0.4 mg TRANSDERM. DAILY [facility] Last Admin: 07/21/19 12:38 Dose: 0.4 mg Documented by: Nitroglycerin (Nitrostat) 0.4 mg SUBLINGUAL Q5M PRN PRN Reason: ANGINA Nutritional Formula (Lactose Free) (Glucerna Shake) 120 ml PO 4X/DAY [facility] Last Admin: 07/21/19 16:40 Dose: Not Given Documented by: Oxycodone HCl (Oxyir) 5 mg PO Q4H PRN PRN PRN Reason: Pain Score 4-5 Last Admin: 07/21/19 12:41 Dose: 5 mg Documented by: Pantoprazole Sodium (Protonix) 40 mg PO BID [facility] Last Admin: 07/21/19 12:38 Dose: 40 mg Documented by: Paroxetine HCl (Paxil) 30 mg PO DAILY [facility] Last Admin: 07/21/19 12:37 Dose: 30 mg Documented by: Promethazine HCl (Phenergan Suppository) 25 mg RECTAL Q4H PRN PRN PRN Reason: NAUSEA Promethazine HCl (Phenergan Tablet) 25 mg PO Q6H PRN PRN PRN Reason: NAUSEA Ranolazine (Ranexa) 1,000 mg PO BID [facility] Last Admin: 07/21/19 12:37 Dose: 1,000 mg Documented by: Sodium Chloride () 10 - 40 ml IV UD PRN PRN Reason: SALINE FLUSH Last Admin: 07/20/19 20:16 Dose: 10 ml Documented by: Assessment/Plan All Active Problems (Last Updated 07/19/19 @ 14:44 by Viv Toribio) Pancytopenia (Acute) Lymphadenopathy, axillary (Acute) 1. Acute kidney injury. No prior SCr for comparison. Renal US did not show hydronephrosis. Kidney sizes are normal. No evidence of obstructive uropathy. Differential diagnosis for ANY is still broad. Possible prerenal ANY or ATN. Although less likely, we will need to consider HRS given her history of cirrhosis. She is pancytopenic, but her cytopenias are stable. So, it is less likely to be atypical HUS. Other possibility is that this is mainly CKD from T2DM as we have no prior SCr for comparison. We should try to obtain any available SCr result from her PCP's office on Wednesday07/24/19. Will start work up by checking urinalysis. Will check UPCR and urine indices. May add serologies, SPEP and UPEP next if there is significant proteinuria. There is no need for kidney replacement therapy at this time, but will monitor closely. Medications reviewed. Agree with not restarting metformin. 2. Acidosis. Serum HCO3 is 13. This is likely due to ANY/CKD. AG is 9, but will need to check serum albumin to see if there is a falsely narrowed AG due to hypoalbuminemia. Will monitor serum HCO3. No need for NaHCO3 yet. 3. Hyperkalemia. K is 5.4. Likely due to ANY or CKD. Will monitor. Limit K in diet to , 2 g/day for now. 4. HTN. BP is acceptable. Not on ACEI/ARB. Will monitor. 5. L pubic ramus fracture. Pain control as per hospital medicine service.
[2019-07-21 19:46] LABS: Bacteria 0 SEEN /hpf (None Seen); Color, Urine Yellow (Yellow); Glucose, Dipstick 50 mg/dl (Normal); Ketone-Dipstick 5 mg/dl (Negative); Leukocyte Esterase-Dipstick 500 /ul (Negative); Mucous, Urine 0 SEEN /hpf (<or=2+); Nitrite-Dipstick Positive (Negative); Occult Blood-Urine 150 /ul (Negative); Protein-Dipstick 100 mg/dl (Negative); Red Blood Cells-Urine 0 SEEN /hpf (0-5); Specific Gravity, Urine 1.025 (1.002-1.030); Squamous Epithelial Cells - UA 0 SEEN /hpf (5-10); Urine Bilirubin Dipstick Negative (Negative); Urine Clarity Turbid (Clear); Urine Urobilinogen Normal (Normal)
[2019-07-21 19:53] LABS: White Blood Cells >100 SEEN /hpf (0-5)
[2019-07-21] MEDS: Atorvastatin Calcium 10 MG Tablet PO (22:11)
[2019-07-22] VITALS (8 sets, daily range): BP systolic 120–156; BP diastolic 49–65; PULSE 48–55; RESP 18; TEMP 36.5–37.2; O2SAT 95–100
[2019-07-22 00:46] LABS: Bedside Glucose 124 mg/dL (70-110)
[2019-07-22] MEDS: oxyCODONE 5 MG Tablet PO ×2 (02:17→09:00)
[2019-07-22 03:12] LABS: Urine Sodium 48 mmol/L (Not Establ.)
[2019-07-22 03:14] LABS: Protein:Creat Ratio 1186 mg/g CRE (0-200)
[2019-07-22] MEDS: Levothyroxine 75 MCG Tablet PO (06:44)
[2019-07-22 07:06] LABS: Bedside Glucose 107 mg/dL (70-110)
--- NOTE | 2019-07-22 07:23 | PCM.PROGNOTE ---
Patient Problems: Active and Suspected Problems (Last Updated 07/19/19 @ 14:44 by Viv Toribio) Pancytopenia (Acute) Lymphadenopathy, axillary (Acute) Subjective: CC follow-up pelvic fracture Urinalysis obtained the day prior demonstrated evidence of acute cystitis subsequently started on Rocephin awaiting culture results Objective: GENERAL: cooperative HEENT: Atraumatic; EYES; Anicteric, Normal Conjunctiva NECK; supple, normal thyroid, RESPIRATORY: Diminished to auscultation CARDIOVASCULAR: Regular S1 S2, GI: soft, normoactive bowel sounds, slight distention : No Renal angle tenderness; EXTREMITIES: No edema, no clubbing, MUSCULOSKELETAL: no muscle waisting NEURO: Awake; no lateralizing signs. SKIN: No Rash PSYCH; Flat affect - Physical Exam Vitals/I&O's: Vital Signs Temp Pulse Resp BP Pulse Ox 98.9 F 55 L 18 146/59 H 100 07/22/19 02:00 07/22/19 02:00 07/22/19 02:00 07/22/19 02:00 07/22/19 02:00 Oxygen Flow Rate (L/min) 2 Oxygen Delivery Method Room Air Weight: 98.6 kg Body Mass Index (BMI) 36.1 Intake and Output for Last 24 Hours 07/20/19 07/21/19 07/22/19 23:59 23:59 23:59 Intake Total 740 / 1220 2561.67 / 2561.67 180 / 180 Output Total 200 / 200 575 / 575 Balance 540 / 1020 1986.67 / 1985. 180 / 180 Laboratory Results 07/21/19 07:45: Blood Type O POSITIVE, Antibody Screen NEGATIVE, Crossmatch See Detail 07/21/19 12:19: POC Glucose 128 H 07/21/19 13:30: Urine Color Yellow, Urine Clarity Turbid, Urine pH 6.0, Ur Specific [place] 1.025, Urine Protein 100 H, Urine Glucose (UA) 50 H, Urine Ketones 5 H, Urine Occult Blood 150 H, Urine Nitrite Positive H, Urine Bilirubin Negative, Urine Urobilinogen Normal, Ur Leukocyte Esterase 500 H, Urine RBC 0 SEEN, Urine WBC >100 SEEN, Ur Squamous Epith Cells 0 SEEN, Urine Bacteria 0 SEEN, Urine Mucus 0 SEEN 07/21/19 16:37: POC Glucose 112 H 07/21/19 22:02: POC Glucose 124 H 07/22/19 02:40: Urine Creatinine 119.00 07/22/19 02:40: U Random Total Protein 140.0 H, Urine Creatinine 118.00, Protein/Creatinin Ratio 1186 H 07/22/19 02:40: Ur Random Sodium 48 07/22/19 06:43: POC Glucose 107 Current Medications Amlodipine Besylate (Norvasc) 5 mg PO DAILY [facility] Last Admin: 07/21/19 12:39 Dose: 5 mg Documented by: Atenolol (Tenormin (Beta Tessa)) 100 mg PO DAILY [facility] Last Admin: 07/21/19 12:29 Dose: Not Given Documented by: Atorvastatin Calcium (Lipitor) 10 mg PO QHS [facility] Last Admin: 07/21/19 22:11 Dose: 10 mg Documented by: Cholestyramine Resin (Questran 4gm Packet) 4 gm PO BID [facility] Last Admin: 07/21/19 21:58 Dose: Not Given Documented by: Clopidogrel Bisulfate (Plavix) 75 mg PO DAILY [facility] Last Admin: 07/21/19 12:37 Dose: 75 mg Documented by: Dextrose (D50w Syringe) 0 gm IV X1 PRN; Protocol PRN Reason: Hypoglycemia Glucagon () 1 mg IM .X1 PRN PRN Reason: Hypoglycemia Sodium Chloride () 1,000 mls @ 125 mls/hr IV .Q8H [facility] Stop: 07/23/19 07:29 Last Admin: 07/21/19 23:33 Dose: 125 mls/hr Documented by: Sodium Chloride () 500 mls @ 15 mls/hr IV PRN PRN PRN Reason: Blood Transfusion Ceftriaxone Sodium 1 gm/ N/A 50 mls @ 100 mls/hr IV Q24 [facility] Insulin Human Lispro (Humalog Kwikpen (Bkc)) 0 unit SC ACHS [facility]; Protocol Last Admin: 07/22/19 06:45 Dose: Not Given Documented by: Isosorbide Mononitrate (Imdur) 120 mg PO DAILY [facility] Last Admin: 07/21/19 12:37 Dose: 120 mg Documented by: Levothyroxine Sodium (Synthroid) 75 mcg PO DAILY@0600 [facility] Last Admin: 07/22/19 06:44 Dose: 75 mcg Documented by: Linagliptin (Tradjenta) 5 mg PO DAILY [facility] Last Admin: 07/21/19 12:37 Dose: 5 mg Documented by: Melatonin (Melatonin) 3 mg PO QHS PRN PRN Reason: SLEEP Morphine Sulfate () 2 mg IV Q3H PRN PRN PRN Reason: Pain Score 6-10/10 Last Admin: 07/20/19 20:15 Dose: 2 mg Documented by: Nitroglycerin (Nitro-Dur) 0.4 mg TRANSDERM. DAILY [facility] Last Admin: 07/21/19 12:38 Dose: 0.4 mg Documented by: Nitroglycerin (Nitrostat) 0.4 mg SUBLINGUAL Q5M PRN PRN Reason: ANGINA Nutritional Formula (Lactose Free) (Glucerna Shake) 120 ml PO 4X/DAY [facility] Last Admin: 07/21/19 21:53 Dose: Not Given Documented by: Oxycodone HCl (Oxyir) 5 mg PO Q4H PRN PRN PRN Reason: Pain Score 4-5/10 Last Admin: 07/22/19 02:17 Dose: 5 mg Documented by: Pantoprazole Sodium (Protonix) 40 mg PO BID [facility] Last Admin: 07/21/19 22:12 Dose: 40 mg Documented by: Paroxetine HCl (Paxil) 30 mg PO DAILY [facility] Last Admin: 07/21/19 12:37 Dose: 30 mg Documented by: Promethazine HCl (Phenergan Suppository) 25 mg RECTAL Q4H PRN PRN PRN Reason: NAUSEA Promethazine HCl (Phenergan Tablet) 25 mg PO Q6H PRN PRN PRN Reason: NAUSEA Ranolazine (Ranexa) 1,000 mg PO BID [facility] Last Admin: 07/21/19 22:12 Dose: 1,000 mg Documented by: Sodium Chloride () 10 - 40 ml IV UD PRN PRN Reason: SALINE FLUSH Last Admin: 07/20/19 20:16 Dose: 10 ml Documented by: Medical Necessity - Tobacco Use Smoking Status: Never smoker Tobacco Use: Non-smoker, Secondhand Assessment/Plan All Active Problems (Last Updated 07/19/19 @ 14:44 by Viv Toribio) Pancytopenia (Acute) Lymphadenopathy, axillary (Acute) Patient is a 69-year-old lady who presented with hip pain following a fall. She was found to have nondisplaced left inferior and superior pubic rami fracture admitted to regular nursing for further management 1. Non-syncopal mechanical fall -with resultant Nondisplaced left inferior and superior pubic rami fracture admitted to regular nursing floor for pain management. Also requested for PT OT eval as well as social secretary to assist with disposition ?07/22/2019 patient still complains of some discomfort plan is for patient to be transferred to long-term facility once medically stable 2. Severe anemia Part of patient pancytopenia which is currently being worked up as outpatient ;the patient hemoglobin having dropped to 6.5 and order was given for patient to be transfused 1 unit PRBC with subsequent H&H ordered ?07/22/2019; hemoglobin up to 7.8 3. Chronic kidney disease stage IV ~baseline creatinine reported to be 2.8 Patient kidney function and subsequently worsen following admission started on IV fluid was on Lasix discontinued ordered ultrasound of the kidneys and consult placed to nephrology ?07/22/2019 patient was seen in consultation by Dr. Michaels 4. Hyperkalemia ~secondary to CKD stage IV and order was given for patient to receive Kayexalate 5. Pancytopenia (Thrombocytopenia anemia as well as mild leukopenia) ?Patient is being followed by oncology with she is currently being worked up 6. Hypertension ~ blood pressure controlled, home medications continued with dose adjustment as needed 7. Hypothyroidism ~patient is on levothyroxine home dose continued 8. Diabetes mellitus type II ~Complications including diabetic nephropathy, placed on long acting insulin, Accu-Cheks a.c. and at bedtime and covered with sliding scale insulin 9. Obstructive sleep apnea on CPAP at night 10. Coronary artery disease -With previous CABG and subsequent stent placement 11. Obesity with BMI of 36.2 Weight loss advised 12. Physical debility ?Secondary to patient pelvic fracture undergoing PT OT social secretary consulted with plans for patient to be transferred to long-term facility when medically stable 13. DVT prophylaxis SCDs Avoided the use of chemical prophylaxis in view of patient low platelet count 14. Acute cystitis Started on Rocephin awaiting culture results Code Visit Inpatient E&M: 26972 Subs Hosp L2
[2019-07-22] MEDS: 0.9% Normal Saline 1,000 ML 125 ML IV ×2 (07:34→20:11)
[2019-07-22 07:45] LABS: Absolute Lymphocyte Count 0.89 X10^3/uL (0.83-4.51); Absolute Neutrophil Count 3.1 X10^3/uL (2.0-7.7); Basophil# 0.01 X10^3/uL; Basophil% 0.2 % (0-1); Eosinophil# 0.11 X10^3/uL; Eosinophils% 2.5 % (0-5); Hematocrit 25.5 % (37-47); Hemoglobin 7.8 g/dL (12.0-15.0); Lymphocyte # 0.89 X10^3/ul (4.0); Mean Corp Hgb Conc 30.6 g/dL (32-36); Mean Corpuscular Hgb 29.5 pg (27.0-32.0); Mean Corpuscular Volume 96.6 fL (81-99); Mean Platelet Vol. 10.5 fl (6.2-12.0); Monocyte# 0.26 X10^3/uL; Monocyte% 5.8 % (0-10); NRBC Flagged by Analyzer 0.4 % (0-5); Neutrophil # 3.12 X10^3/uL (2.7-7.7); Neutrophil % 70.2 % (47-70); Platelet Count 121 K/mm3 (150-450); RBC Distribution Width CV 16.9 % (11.6-14.6); RBC Distribution Width SD 58.7 fl (35.1-43.9); Red Blood Count 2.64 M/mm3 (4.2-5.4); White Blood Count 4.5 K/mm3 (4.4-11.0)
[2019-07-22 08:08] LABS: Albumin, Serum 2.7 g/dL (3.2-5.0); Anion Gap 8 (5-15); BUN 50 mg/dL (7-18); BUN/Creat Ratio 15.4 RATIO (10-20); Calcium,Total 7.5 mg/dL (8.5-10.1); Chloride 121 mmol/L (98-107); Creatinine, Serum 3.25 mg/dL (0.55-1.02); EST Glomerular Filtration Rate 15 mL/min (>60); Est Glom Filt Rate - Afr Amer 18 mL/min (>60); Glucose 110 mg/dL (74-106); Potassium 4.6 mmol/L (3.5-5.1); Sodium Level 143 mmol/L (136-145)
[2019-07-22] MEDS: LINAGLIPTIN 5 MG TABLET PO (08:43)
[2019-07-22] MEDS: Pantoprazole Sodium 40 MG Tablet PO (08:43)
[2019-07-22] MEDS: Cholestyramine/Sucrose 4 GM/PACKET PO (08:43)
[2019-07-22] MEDS: Ranolazine 500 MG Tablet 1000 MG PO (08:43)
[2019-07-22] MEDS: PARoxetine 10 MG Tablet 30 MG PO (08:44)
[2019-07-22] MEDS: amLODIPine 5 MG Tablet PO (08:45)
[2019-07-22] MEDS: Glucerna Shake 120 ML LIQUID PO (08:46)
[2019-07-22] MEDS: Clopidogrel Bisulfate 75 MG Tablet PO (08:46)
[2019-07-22] MEDS: Insulin Lispro 100 UNIT/ML INSULN.PEN SC (11:31)
[2019-07-22 12:00] LABS: Bedside Glucose 155 mg/dL (70-110)
--- NOTE | 2019-07-22 15:00 | RAD_ITS ---
STUDY: X-RAY CHEST REASON FOR EXAM: Female, 69 years old. Sepsis, dyspnea TECHNIQUE: AP COMPARISON: None FINDINGS: EKG leads project over the chest. Sternal wires and mediastinal surgical clips compatible with prior CABG. Left shoulder replacement noted. The lungs are clear but under expanded. There is no demonstrated pleural abnormality. There is mild cardiac enlargement. Normal mediastinum and uli. Normal visualized pulmonary arteries. Normal visualized aortic arch and descending thoracic aorta. No acute bony process seen. There is no demonstrated abnormality of the visualized soft tissue structures of the upper abdomen. RAD/Chest 1 View (Portable) IMPRESSION: No airspace consolidation or sizable effusion. Electronically Signed: Alejandro Reece MD ([place]) at 15:35 EDT , Service support ,
--- NOTE | 2019-07-22 15:11 | NURSING ---
SPOKE W/PTS SPOUSE AND UPDATED HIM ON PT STATUS AND THAT SHE WILL BE TRANSFERRED TO [facility]
[2019-07-22 15:29] LABS: Hematocrit 23.9 % (37-47); Hemoglobin 7.4 g/dL (12.0-15.0); Mean Corpuscular Hgb 29.8 pg (27.0-32.0); Mean Corpuscular Volume 96.4 fL (81-99); Mean Platelet Vol. 10.1 fl (6.2-12.0); Platelet Count 109 K/mm3 (150-450); RBC Distribution Width CV 16.6 % (11.6-14.6); RBC Distribution Width SD 57.8 fl (35.1-43.9); Red Blood Count 2.48 M/mm3 (4.2-5.4); White Blood Count 5.4 K/mm3 (4.4-11.0)
--- NOTE | 2019-07-22 15:33 | NURSING ---
Dr. Santana updated on patient's continued drowsiness and low urine output. She will open eyes, answer a couple questions and then fall asleep. She is also having some twitching movements noted. He ordered the sepsis protocol and labs and is transferring patient to PCU. Report called to Verónica in PCU at this time.
[2019-07-22 15:36] LABS: International Normalized Ratio 1.6; Prothrombin Time (Protime)PT. 18.7 SECONDS (11.7-14.9)
[2019-07-22 15:37] LABS: Partial Thromboplast Time 38.6 Seconds (24.1-36.2)
[2019-07-22 15:47] LABS: ALB/GLOB Ratio 0.8 RATIO (0.9-2.4); AST(SGOT) 15 U/L (15-37); Alanine Aminotransfer ALT/SGPT 10 U/L (13-56); Albumin, Serum 2.7 g/dL (3.2-5.0); Alkaline Phosphatase 74 U/L (45-117); Anion Gap 6 (5-15); BUN 51 mg/dL (7-18); BUN/Creat Ratio 15.3 RATIO (10-20); Calcium,Total 7.4 mg/dL (8.5-10.1); Chloride 120 mmol/L (98-107); Creatinine, Serum 3.34 mg/dL (0.55-1.02); EST Glomerular Filtration Rate 15 mL/min (>60); Est Glom Filt Rate - Afr Amer 18 mL/min (>60); Globulin 3.4 g/dL (2.2-4.2); Glucose 146 mg/dL (74-106); Potassium 4.8 mmol/L (3.5-5.1); Protein, Total 6.1 g/dL (6.4-8.2); Sodium Level 142 mmol/L (136-145)
[2019-07-22 15:49] LABS: Lactic Acid 1.1 mmol/L (0.4-2.0)
[2019-07-22 16:26] LABS: Bedside Glucose 142 mg/dL (70-110)
--- NOTE | 2019-07-22 16:31 | NURSING ---
previous RN documented that 3rd liter of NS finished infusing at 1530 but it still is half full. 3rd liter infusing as ordered.
--- NOTE | 2019-07-22 19:04 | PN.RENAL_ITS ---
Subjective: Pt is obtunded. On BiPAP UOP has decreased on NaCl 0.9% at 125 cc /hour - Physical Exam Vitals/I&O's: Vital Signs Temp Pulse Resp BP Pulse Ox 98.2 F 50 L 18 132/49 H 95 07/22/19 15:51 07/22/19 15:51 07/22/19 15:51 07/22/19 15:51 07/22/19 17:32 Oxygen Flow Rate (L/min) 2 Oxygen Delivery Method CPAP Weight: 98.6 kg Body Mass Index (BMI) 36.1 Intake and Output for Last 24 Hours 07/20/19 07/21/19 07/22/19 23:59 23:59 23:59 Intake Total 740 / 1220 2561.67 / 2561.67 3309.17 / 3309.17 Output Total 200 / 200 575 / 575 100 / 100 Balance 540 / 1020 1986.67 / 1985.67 3209.17 / 3209.17 General: Confused HEENT: Atraumatic Oral: Moist Mucosa Neck: Supple, No JVD Lungs: Clear to auscultation, Normal air movement, No rhonchi Cardiovascular: Regular rate, Regular Rhythm, Normal S1 Abdomen: Bowel Sounds Present, Soft, Distended Musculoskeletal: No Tenderness to Palpation of Joints or Extremities Psych/Mental Status: - - obtuned Microbiology Past 72 Hours 07/21/19 13:30 Urine Catheter - Roblero Urine Culture - Preliminary GNR lactose flume tender Laboratory Results 07/21/19 13:30: Urine Color Yellow, Urine Clarity Turbid, Urine pH 6.0, Ur Specific [place] 1.025, Urine Protein 100 H, Urine Glucose (UA) 50 H, Urine Ketones 5 H, Urine Occult Blood 150 H, Urine Nitrite Positive H, Urine Bilirubin Negative, Urine Urobilinogen Normal, Ur Leukocyte Esterase 500 H, Urine RBC 0 SEEN, Urine WBC >100 SEEN, Ur Squamous Epith Cells 0 SEEN, Urine Bacteria 0 SEEN, Urine Mucus 0 SEEN 07/21/19 22:02: POC Glucose 124 H 07/22/19 02:40: Urine Creatinine 119.00 07/22/19 02:40: U Random Total Protein 140.0 H, Urine Creatinine 118.00, Protein/Creatinin Ratio 1186 H 07/22/19 02:40: Ur Random Sodium 48 07/22/19 06:43: POC Glucose 107 07/22/19 06:49: WBC 4.5, RBC 2.64 L, Hgb 7.8 L, Hct 25.5 L, MCV 96.6, MCH 29.5, MCHC 30.6 L, RDW Std Deviation 58.7 H, RDW Coeff of Rachel 16.9 H, Plt Count 121 L, MPV 10.5, Immature Gran % (Auto) 1.300 H, Neut % (Auto) 70.2 H, Lymph % (Auto) 20.0, [place] % (Auto) 5.8, Eos % (Auto) 2.5, Baso % (Auto) 0.2, Absolute Neuts (auto) 3.1, Absolute Lymphs (auto) 0.89, Nucleated RBC % 0.4 07/22/19 06:49: Sodium 143, Potassium 4.6, Chloride 121 H, Carbon Dioxide 14.0 L , Anion Gap 8, BUN 50 H, Creatinine 3.25 H, Estim Creat Clear Calc 14.70, Est GFR (MDRD) Af Amer 18 L, Est GFR (MDRD) Non-Af 15 L, BUN/Creatinine Ratio 15.4, Glucose 110 H, Calcium 7.5 L, Albumin 2.7 L 07/22/19 11:22: POC Glucose 155 H 07/22/19 15:15: WBC 5.4, RBC 2.48 L, Hgb 7.4 L, Hct 23.9 L, MCV 96.4, MCH 29.8, MCHC 31.0 L, RDW Std Deviation 57.8 H, RDW Coeff of Rachel 16.6 H, Plt Count 109 L, MPV 10.1 07/22/19 15:15: PT 18.7 H, INR 1.6, APTT 38.6 H 07/22/19 15:15: Sodium 142, Potassium 4.8, Chloride 120 H, Carbon Dioxide 16.0 L , Anion Gap 6, BUN 51 H, Creatinine 3.34 H, Estim Creat Clear Calc 14.30, Est GFR (MDRD) Af Amer 18 L, Est GFR (MDRD) Non-Af 15 L, BUN/Creatinine Ratio 15.3, Glucose 146 H, Calcium 7.4 L, Total Bilirubin 0.50, AST 15, ALT 10 L, Alkaline Phosphatase 74, Total Protein 6.1 L, Albumin 2.7 L, Globulin 3.4, Albumin/Globulin Ratio 0.8 L 07/22/19 15:15: Lactic Acid 1.1 07/22/19 16:02: POC Glucose 142 H Current Medications Amlodipine Besylate (Norvasc) 5 mg PO DAILY [facility] Last Admin: 07/22/19 08:45 Dose: 5 mg Documented by: Atorvastatin Calcium (Lipitor) 10 mg PO QHS [facility] Last Admin: 07/21/19 22:11 Dose: 10 mg Documented by: Cholestyramine Resin (Questran 4gm Packet) 4 gm PO BID [facility] Last Admin: 07/22/19 08:43 Dose: 4 gm Documented by: Clopidogrel Bisulfate (Plavix) 75 mg PO DAILY [facility] Last Admin: 07/22/19 08:46 Dose: 75 mg Documented by: Dextrose (D50w Syringe) 0 gm IV X1 PRN; Protocol PRN Reason: Hypoglycemia Glucagon () 1 mg IM .X1 PRN PRN Reason: Hypoglycemia Sodium Chloride () 1,000 mls @ 125 mls/hr IV .Q8H [facility] Stop: 07/23/19 07:29 Last Infusion: 07/22/19 15:30 Dose: Infused Documented by: Sodium Chloride () 500 mls @ 15 mls/hr IV PRN PRN PRN Reason: Blood Transfusion Ceftriaxone Sodium 1 gm/ N/A 50 mls @ 100 mls/hr IV Q24 [facility] Last Infusion: 07/22/19 09:16 Dose: Infused Documented by: Insulin Human Lispro (Humalog Kwikpen (Bkc)) 0 unit SC ACHS [facility]; Protocol Last Admin: 07/22/19 16:02 Dose: Not Given Documented by: Isosorbide Mononitrate (Imdur) 120 mg PO DAILY [facility] Last Admin: 07/22/19 08:42 Dose: 120 mg Documented by: Levothyroxine Sodium (Synthroid) 75 mcg PO DAILY@0600 [facility] Last Admin: 07/22/19 06:44 Dose: 75 mcg Documented by: Linagliptin (Tradjenta) 5 mg PO DAILY [facility] Last Admin: 07/22/19 08:43 Dose: 5 mg Documented by: Melatonin (Melatonin) 3 mg PO QHS PRN PRN Reason: SLEEP Morphine Sulfate () 2 mg IV Q3H PRN PRN PRN Reason: Pain Score 6-10/10 Last Admin: 07/20/19 20:15 Dose: 2 mg Documented by: Nitroglycerin (Nitro-Dur) 0.4 mg TRANSDERM. DAILY [facility] Last Admin: 07/22/19 08:42 Dose: 0.4 mg Documented by: Nitroglycerin (Nitrostat) 0.4 mg SUBLINGUAL Q5M PRN PRN Reason: ANGINA Nutritional Formula (Lactose Free) (Glucerna Shake) 120 ml PO 4X/DAY [facility] Last Admin: 07/22/19 15:58 Dose: Not Given Documented by: Oxycodone HCl (Oxyir) 5 mg PO Q4H PRN PRN PRN Reason: Pain Score 4-5/10 Last Admin: 07/22/19 09:00 Dose: 5 mg Documented by: Pantoprazole Sodium (Protonix) 40 mg PO BID [facility] Last Admin: 07/22/19 08:43 Dose: 40 mg Documented by: Paroxetine HCl (Paxil) 30 mg PO DAILY [facility] Last Admin: 07/22/19 08:44 Dose: 30 mg Documented by: Promethazine HCl (Phenergan Suppository) 25 mg RECTAL Q4H PRN PRN PRN Reason: NAUSEA Promethazine HCl (Phenergan Tablet) 25 mg PO Q6H PRN PRN PRN Reason: NAUSEA Ranolazine (Ranexa) 1,000 mg PO BID [facility] Last Admin: 07/22/19 08:43 Dose: 1,000 mg Documented by: Senna (Senokot) 1 tablet PO BID [facility] Last Admin: 07/22/19 15:57 Dose: Not Given Documented by: Sodium Chloride () 10 - 40 ml IV UD PRN PRN Reason: SALINE FLUSH Last Admin: 07/20/19 20:16 Dose: 10 ml Documented by: Medical Necessity - Tobacco Use Smoking Status: Never smoker Tobacco Use: Non-smoker, Secondhand Assessment/Plan All Active Problems (Last Updated 07/19/19 @ 14:44 by Viv Toribio) Pancytopenia (Acute) Lymphadenopathy, axillary (Acute) 1. Acute kidney injury. No prior SCr for comparison. Renal US did not show hydronephrosis. Kidney sizes are normal. No evidence of obstructive uropathy. Differential diagnosis for ANY is still broad. Possible prerenal ANY or ATN. Although less likely, we will need to consider HRS given her history of cirrhosis. She is pancytopenic, but her cytopenias are stable. So, it is less likely to be atypical HUS. Other possibility is that this is mainly CKD from T2DM as we have no prior SCr for comparison. We should try to obtain any available SCr result from her PCP's office on Wednesday07/24/19. UA showed 100 protein with Pro/Cr 1100 mg/g Will check UPCR and SPEP Cr remains stable. Pt seems oliguric today. Agree with IVF Monitor respiratory status carefully There is no need for kidney replacement therapy at this time, but will monitor closely. Medications reviewed. Agree with not restarting metformin. 2. Acidosis. Serum HCO3 improved. This is likely due to ANY/CKD. Will monitor serum HCO3. No need for NaHCO3 yet. 3. Hyperkalemia. Improved. K is 4.8 today Will monitor. Limit K in diet to , 2 g/day for now. 4. HTN. BP is acceptable. Not on ACEI/ARB. Will monitor. 5. L pubic ramus fracture. Pain control as per hospital medicine service Renal team will continue to follow.Please call if any question or concern at [phone] Jose Riggins MD
[2019-07-22 23:21] LABS: Bedside Glucose 120 mg/dL (70-110)
[2019-07-23] VITALS (16 sets, daily range): BP systolic 145–170; BP diastolic 35–83; PULSE 48–56; RESP 14–20; TEMP 36.6–37; O2SAT 95–100
[2019-07-23] MEDS: 0.9% Normal Saline 1,000 ML 125 ML IV (04:24)
[2019-07-23] MEDS: Levothyroxine 75 MCG Tablet PO (05:31)
[2019-07-23 06:37] LABS: Absolute Lymphocyte Count 0.78 X10^3/uL (0.83-4.51); Absolute Neutrophil Count 3.3 X10^3/uL (2.0-7.7); Eosinophils% 2.2 % (0-5); Hematocrit 21.3 % (37-47); Hemoglobin 6.7 g/dL (12.0-15.0); Lymphocyte # 0.78 X10^3/ul (4.0); Lymphocyte % 17.1 % (19-41); Mean Corp Hgb Conc 31.5 g/dL (32-36); Mean Corpuscular Volume 95.5 fL (81-99); Mean Platelet Vol. 10.5 fl (6.2-12.0); Monocyte# 0.34 X10^3/uL; Monocyte% 7.5 % (0-10); NRBC Flagged by Analyzer 0.4 % (0-5); Neutrophil % 72.3 % (47-70); Platelet Count 107 K/mm3 (150-450); RBC Distribution Width CV 16.9 % (11.6-14.6); RBC Distribution Width SD 57.9 fl (35.1-43.9); Red Blood Count 2.23 M/mm3 (4.2-5.4); White Blood Count 4.6 K/mm3 (4.4-11.0)
[2019-07-23 06:51] LABS: Anion Gap 10 (5-15); BUN 54 mg/dL (7-18); BUN/Creat Ratio 15.5 RATIO (10-20); Calcium,Total 7.1 mg/dL (8.5-10.1); Chloride 121 mmol/L (98-107); Creatinine, Serum 3.49 mg/dL (0.55-1.02); EST Glomerular Filtration Rate 14 mL/min (>60); Est Glom Filt Rate - Afr Amer 17 mL/min (>60); Estimated Creatinine Clearance 13.69 ml/min; Glucose 105 mg/dL (74-106); Potassium 4.5 mmol/L (3.5-5.1); Sodium Level 144 mmol/L (136-145)
[2019-07-23 07:11] LABS: Bedside Glucose 101 mg/dL (70-110)
--- NOTE | 2019-07-23 09:01 | PCM.PN.HOSP ---
Subjective: CC follow-up pelvic fracture and acute cystitis Patient was transferred from the regular nursing floor to progressive care unit the day prior due to increasing lethargy. Her urine cultures came back positive for Klebsiella hemoglobin dropped to 6.7 and order was given for patient to be transfused with 1 unit PRBC. Of note her creatinine also continues to worsen. Work-up is currently underway to rule out myeloma Objective: GENERAL: cooperative HEENT: Atraumatic; EYES; Anicteric, Normal Conjunctiva NECK; supple, normal thyroid, RESPIRATORY: Diminished to auscultation CARDIOVASCULAR: Regular S1 S2, GI: soft, normoactive bowel sounds, slight distention : No Renal angle tenderness; EXTREMITIES: No edema, no clubbing, MUSCULOSKELETAL: no muscle waisting NEURO: Awake; no lateralizing signs. SKIN: No Rash PSYCH; Flat affect Vitals/I&O's: Vital Signs Temp Pulse Resp BP Pulse Ox 98.4 F 52 L 16 151/83 H 98 07/23/19 08:30 07/23/19 08:30 07/23/19 08:30 07/23/19 08:30 07/23/19 08:30 Oxygen Flow Rate (L/min) 2 Oxygen Delivery Method Room Air Weight: 98.6 kg Body Mass Index (BMI) 36.1 Intake and Output for Last 24 Hours 07/21/19 07/22/19 07/23/19 23:59 23:59 23:59 Intake Total 2561.67 / 2561.67 3309.17 / 3786.25 1312.50 / 1312.50 Output Total 575 / 575 100 / 160 130 / 130 Balance 1985.67 / 1985.67 3209.17 / 3626.25 1182.50 / 1182.50 Microbiology Past 72 Hours 07/21/19 13:30 Urine Catheter - Roblero Urine Culture - Final Klebsiella pneumoniae sp pneum Laboratory Results 07/22/19 11:22: POC Glucose 155 H 07/22/19 15:15: WBC 5.4, RBC 2.48 L, Hgb 7.4 L, Hct 23.9 L, MCV 96.4, MCH 29.8, MCHC 31.0 L, RDW Std Deviation 57.8 H, RDW Coeff of Rachel 16.6 H, Plt Count 109 L, MPV 10.1 07/22/19 15:15: PT 18.7 H, INR 1.6, APTT 38.6 H 07/22/19 15:15: Sodium 142, Potassium 4.8, Chloride 120 H, Carbon Dioxide 16.0 L, Anion Gap 6, BUN 51 H, Creatinine 3.34 H, Estim Creat Clear Calc 14.30, Est GFR (MDRD) Af Amer 18 L, Est GFR (MDRD) Non-Af 15 L, BUN/Creatinine Ratio 15.3, Glucose 146 H, Calcium 7.4 L, Total Bilirubin 0.50, AST 15, ALT 10 L, Alkaline Phosphatase 74, Total Protein 6.1 L, Albumin 2.7 L, Globulin 3.4, Albumin/Globulin Ratio 0.8 L 07/22/19 15:15: Lactic Acid 1.1 07/22/19 16:02: POC Glucose 142 H 07/22/19 21:41: POC Glucose 120 H 07/23/19 06:07: WBC 4.6, RBC 2.23 L, Hgb 6.7 L, Hct 21.3 L, MCV 95.5, MCH 30.0, MCHC 31.5 L, RDW Std Deviation 57.9 H, RDW Coeff of Rachel 16.9 H, Plt Count 107 L, MPV 10.5, Immature Gran % (Auto) 0.900, Neut % (Auto) 72.3 H, Lymph % (Auto) 17.1 L, [place] % (Auto) 7.5, Eos % (Auto) 2.2, Baso % (Auto) 0.0, Absolute Neuts (auto) 3.3, Absolute Lymphs (auto) 0.78 L, Nucleated RBC % 0.4 07/23/19 06:07: Sodium 144, Potassium 4.5, Chloride 121 H, Carbon Dioxide 13.0 L, Anion Gap 10, BUN 54 H, Creatinine 3.49 H, Estim Creat Clear Calc 13.69, Est GFR (MDRD) Af Amer 17 L, Est GFR (MDRD) Non-Af 14 L, BUN/Creatinine Ratio 15.5, Glucose 105, Calcium 7.1 L 07/23/19 06:07: Total Protein (PEP) Pending, Ur Total Protein 24 Hr Pending, Urine Total Protein Pending, Urine Albumin Pending, U Kfcph-2-Llfttqnb Pending, U Reokd-5-Tkrqwzrg Pending, U Beta Globulin Pending, U Gamma Globulin Pending, IgG Pending, IgA Pending, IgM Pending, Albumin (ROMEL) Pending, Albumin/Globulin (ROMEL) Pending, Ijhyv-0-Iffrmbuoy ROMEL Pending, Cdxsf-9-Fekzjwkkk ROMEL Pending, Beta-Globulins (ROMEL) Pending, Gamma Globulins (ROMEL) Pending, ROMEL M-Roberto Pending 07/23/19 07:07: POC Glucose 101 Current Medications Amlodipine Besylate (Norvasc) 5 mg PO DAILY [facility] Last Admin: 07/22/19 08:45 Dose: 5 mg Documented by: Atorvastatin Calcium (Lipitor) 10 mg PO QHS [facility] Last Admin: 07/22/19 21:42 Dose: Not Given Documented by: Cholestyramine Resin (Questran 4gm Packet) 4 gm PO BID [facility] Last Admin: 07/22/19 21:42 Dose: Not Given Documented by: Clopidogrel Bisulfate (Plavix) 75 mg PO DAILY [facility] Last Admin: 07/22/19 08:46 Dose: 75 mg Documented by: Dextrose (D50w Syringe) 0 gm IV X1 PRN; Protocol PRN Reason: Hypoglycemia Glucagon () 1 mg IM .X1 PRN PRN Reason: Hypoglycemia Sodium Chloride () 500 mls @ 15 mls/hr IV PRN PRN PRN Reason: Blood Transfusion Ceftriaxone Sodium 1 gm/ N/A 50 mls @ 100 mls/hr IV Q24 [facility] Last Infusion: 07/22/19 09:16 Dose: Infused Documented by: Insulin Human Lispro (Humalog Kwikpen (Bkc)) 0 unit SC ACHS [facility]; Protocol Last Admin: 07/23/19 07:15 Dose: Not Given Documented by: Isosorbide Mononitrate (Imdur) 120 mg PO DAILY [facility] Last Admin: 07/22/19 08:42 Dose: 120 mg Documented by: Levothyroxine Sodium (Synthroid) 75 mcg PO DAILY@0600 [facility] Last Admin: 07/23/19 05:31 Dose: 75 mcg Documented by: Linagliptin (Tradjenta) 5 mg PO DAILY [facility] Last Admin: 07/22/19 08:43 Dose: 5 mg Documented by: Melatonin (Melatonin) 3 mg PO QHS PRN PRN Reason: SLEEP Morphine Sulfate () 2 mg IV Q3H PRN PRN PRN Reason: Pain Score 6-10/10 Last Admin: 07/20/19 20:15 Dose: 2 mg Documented by: Nitroglycerin (Nitro-Dur) 0.4 mg TRANSDERM. DAILY [facility] Last Admin: 07/22/19 08:42 Dose: 0.4 mg Documented by: Nitroglycerin (Nitrostat) 0.4 mg SUBLINGUAL Q5M PRN PRN Reason: ANGINA Nutritional Formula (Lactose Free) (Glucerna Shake) 120 ml PO 4X/DAY [facility] Last Admin: 07/22/19 21:41 Dose: Not Given Documented by: Oxycodone HCl (Oxyir) 5 mg PO Q4H PRN PRN PRN Reason: Pain Score 4-5/10 Last Admin: 07/22/19 09:00 Dose: 5 mg Documented by: Pantoprazole Sodium (Protonix) 40 mg PO BID [facility] Last Admin: 07/22/19 21:42 Dose: Not Given Documented by: Paroxetine HCl (Paxil) 30 mg PO DAILY [facility] Last Admin: 07/22/19 08:44 Dose: 30 mg Documented by: Promethazine HCl (Phenergan Suppository) 25 mg RECTAL Q4H PRN PRN PRN Reason: NAUSEA Promethazine HCl (Phenergan Tablet) 25 mg PO Q6H PRN PRN PRN Reason: NAUSEA Ranolazine (Ranexa) 1,000 mg PO BID [facility] Last Admin: 07/22/19 21:42 Dose: Not Given Documented by: Senna (Senokot) 1 tablet PO BID [facility] Last Admin: 07/22/19 21:42 Dose: Not Given Documented by: Sodium Chloride () 10 - 40 ml IV UD PRN PRN Reason: SALINE FLUSH Last Admin: 07/20/19 20:16 Dose: 10 ml Documented by: STROKE Vital Signs/Narrative: Vital Signs Temp Pulse Resp BP Pulse Ox 07/23/19 08:30 98.4 F 52 L 16 151/83 H 98 07/23/19 08:10 97 07/23/19 07:01 48 L Medical Necessity - Tobacco Use Smoking Status: Never smoker Tobacco Use: Non-smoker, Secondhand Assessment/Plan All Active Problems (Last Updated 07/19/19 @ 14:44 by Viv Toribio) Pancytopenia (Acute) Lymphadenopathy, axillary (Acute) Patient is a 69-year-old lady who presented with hip pain following a fall. She was found to have nondisplaced left inferior and superior pubic rami fracture admitted to regular nursing for further management 1. Non-syncopal mechanical fall -with resultant Nondisplaced left inferior and superior pubic rami fracture admitted to regular nursing floor for pain management. Also requested for PT OT eval as well as social media editor to assist with disposition ?07/22/2019 patient still complains of some discomfort plan is for patient to be transferred to long term facility once medically stable 2. Severe anemia Part of patient pancytopenia which is currently being worked up as outpatient ;the patient hemoglobin having dropped to 6.5 and order was given for patient to be transfused 1 unit PRBC with subsequent H&H ordered ?07/22/2019; hemoglobin up to 7.8 ?07/23/2019 hemoglobin down to 6.7 and order was given for patient to be transfused with 1 additional unit. 3. Chronic kidney disease stage IV ~baseline creatinine reported to be 2.8 Patient kidney function and subsequently worsen following admission started on IV fluid was on Lasix discontinued ordered ultrasound of the kidneys and consult placed to nephrology ?07/22/2019 patient was seen in consultation by Dr. Michaels ?07/23/2019 patient currently being worked up for possible myeloma, kidney function continues to worsen 4. Hyperkalemia ~secondary to CKD stage IV and order was given for patient to receive Kayexalate 5. Pancytopenia (Thrombocytopenia anemia as well as mild leukopenia) ?Patient is being followed by oncology with she is currently being worked up 6. Hypertension ~ blood pressure controlled, home medications continued with dose adjustment as needed 7. Hypothyroidism ~patient is on levothyroxine home dose continued 8. Diabetes mellitus type II ~Complications including diabetic nephropathy, placed on long acting insulin, Accu-Cheks a.c. and at bedtime and covered with sliding scale insulin 9. Obstructive sleep apnea on CPAP at night 10. Coronary artery disease -With previous CABG and subsequent stent placement 11. Obesity with BMI of 36.2 Weight loss advised 12. Physical debility ?Secondary to patient pelvic fracture undergoing PT OT social media editor consulted with plans for patient to be transferred to long term facility when medically stable 13. DVT prophylaxis SCDs Avoided the use of chemical prophylaxis in view of patient low platelet count 14. Acute cystitis Started on Rocephin awaiting culture results ?07/23/2019: Cultures came back positive for Klebsiella patient is on appropriate antibiotic therapy. Severe sepsis was ruled out. Code Visit Inpatient E&M: 48823 Subs Hosp L2
[2019-07-23] MEDS: Cholestyramine/Sucrose 4 GM/PACKET PO ×2 (09:04→20:18)
[2019-07-23] MEDS: amLODIPine 5 MG Tablet PO ×2 (09:06→15:01)
[2019-07-23] MEDS: Clopidogrel Bisulfate 75 MG Tablet PO (09:07)
[2019-07-23] MEDS: Ranolazine 500 MG Tablet 1000 MG PO ×2 (09:07→22:33)
[2019-07-23] MEDS: Pantoprazole Sodium 40 MG Tablet PO ×2 (09:07→22:34)
[2019-07-23] MEDS: PARoxetine 10 MG Tablet 30 MG PO (09:07)
[2019-07-23] MEDS: LINAGLIPTIN 5 MG TABLET PO (09:09)
[2019-07-23] MEDS: Senna Tablet 1 TABLET PO (09:13)
[2019-07-23] MEDS: Polyethylene Glycol 3350 17 GM PACKET PO (09:37)
[2019-07-23 11:50] LABS: Bedside Glucose 111 mg/dL (70-110)
[2019-07-23] MEDS: Acetaminophen 325 MG Tablet 650 MG PO (16:49)
[2019-07-23 17:10] LABS: Bedside Glucose 93 mg/dL (70-110)
--- NOTE | 2019-07-23 18:52 | PN.RENAL_ITS ---
Subjective: Pt is awake alert today No nausea No vomiting. Breathing is stable Pt said she is making urine. No accurate I/O - Physical Exam Vitals/I&O's: Vital Signs Temp Pulse Resp BP Pulse Ox 98.6 F 53 L 14 149/42 H 100 07/23/19 16:25 07/23/19 16:25 07/23/19 16:25 07/23/19 16:25 07/23/19 16:25 Oxygen Flow Rate (L/min) 2 Oxygen Delivery Method Nasal Cannula Weight: 98.6 kg Body Mass Index (BMI) 36.1 Intake and Output for Last 24 Hours 07/21/19 07/22/19 07/23/19 23:59 23:59 23:59 Intake Total 2561.67 / 2561.67 3309.17 / 3786.25 3341.67 / 3341.67 Output Total 575 / 575 100 / 160 380 / 380 Balance 1985. / 3209.17 / 3626.25 2961.67 / 2961.67 General: Alert, Oriented x3 HEENT: Atraumatic Oral: Moist Mucosa Neck: Supple, No JVD Lungs: Clear to auscultation, Normal air movement, No rhonchi, No wheeze Cardiovascular: Regular rate, Regular Rhythm, Normal S1, Normal S2 Abdomen: Bowel Sounds Present, Soft, Non Tender, Non-Distended Extremities: No clubbing, No cyanosis, No edema Skin: No rashes Musculoskeletal: No Tenderness to Palpation of Joints or Extremities Lymphatic: No Cervical, Supraclavicular, or Inguinal Adenopathy Neurological: Cranial nerves II-XII grossly intact, Neuro grossly intact Psych/Mental Status: Appropriate Microbiology Past 72 Hours 07/21/19 13:30 Urine Catheter - Roblero Urine Culture - Final Klebsiella pneumoniae sp pneum Laboratory Results 07/21/19 07:45: Crossmatch See Detail 07/21/19 07:45: Crossmatch See Detail 07/22/19 21:41: POC Glucose 120 H 07/23/19 06:07: WBC 4.6, RBC 2.23 L, Hgb 6.7 L, Hct 21.3 L, MCV 95.5, MCH 30.0, MCHC 31.5 L, RDW Std Deviation 57.9 H, RDW Coeff of Rachel 16.9 H, Plt Count 107 L, MPV 10.5, Immature Gran % (Auto) 0.900, Neut % (Auto) 72.3 H, Lymph % (Auto) 17.1 L, [place] % (Auto) 7.5, Eos % (Auto) 2.2, Baso % (Auto) 0.0, Absolute Neuts (auto) 3.3, Absolute Lymphs (auto) 0.78 L, Nucleated RBC % 0.4 07/23/19 06:07: Sodium 144, Potassium 4.5, Chloride 121 H, Carbon Dioxide 13.0 L , Anion Gap 10, BUN 54 H, Creatinine 3.49 H, Estim Creat Clear Calc 13.69, Est GFR (MDRD) Af Amer 17 L, Est GFR (MDRD) Non-Af 14 L, BUN/Creatinine Ratio 15.5, Glucose 105, Calcium 7.1 L 07/23/19 06:07: Total Protein (PEP) Pending, Ur Total Protein 24 Hr Pending, Urine Total Protein Pending, Urine Albumin Pending, U Pquzg-7-Rxzrhitm Pending, U Qhjvd-5-Azezmslc Pending, U Beta Globulin Pending, U Gamma Globulin Pending, IgG Pending, IgA Pending, IgM Pending, Albumin (ROMEL) Pending, Albumin/Globulin (ROMEL) Pending, Beztf-6-Mnctptruz ROMEL Pending, Anxwg-8-Oczxhjhfh ROMEL Pending, Beta-Globulins (ROMEL) Pending, Gamma Globulins (ROMEL) Pending, ROMEL M-Roberto Pending 07/23/19 07:07: POC Glucose 101 07/23/19 11:09: POC Glucose 111 H 07/23/19 16:16: POC Glucose 93 Current Medications Acetaminophen (Tylenol) 650 mg PO Q6H PRN PRN PRN Reason: Pain Score 1-07/06 Last Admin: 07/23/19 16:49 Dose: 650 mg Documented by: Amlodipine Besylate (Norvasc) 10 mg PO DAILY [facility] Atorvastatin Calcium (Lipitor) 10 mg PO QHS [facility] Last Admin: 07/22/19 21:42 Dose: Not Given Documented by: Cholestyramine Resin (Questran 4gm Packet) 4 gm PO BID [facility] [place] Last Admin: 07/23/19 09:04 Dose: 4 gm Documented by: Clopidogrel Bisulfate (Plavix) 75 mg PO DAILY [facility] [place] Last Admin: 07/23/19 09:07 Dose: 75 mg Documented by: Dextrose (D50w Syringe) 0 gm IV X1 PRN; Protocol PRN Reason: Hypoglycemia Glucagon () 1 mg IM .X1 PRN PRN Reason: Hypoglycemia Hydralazine HCl (Apresoline Iv) 10 mg IV Q4H PRN PRN PRN Reason: for SBP > 150 Sodium Chloride () 500 mls @ 15 mls/hr IV PRN PRN PRN Reason: Blood Transfusion Ceftriaxone Sodium 1 gm/ N/A 50 mls @ 100 mls/hr IV Q24 [facility] [place] Last Infusion: 07/23/19 10:07 Dose: Infused Documented by: Insulin Human Lispro (Humalog Kwikpen (Bkc)) 0 unit SC ACHS [facility] [place]; Protocol Last Admin: 07/23/19 16:24 Dose: Not Given Documented by: Isosorbide Mononitrate (Imdur) 120 mg PO DAILY [facility] [place] Last Admin: 07/23/19 09:05 Dose: 120 mg Documented by: Levothyroxine Sodium (Synthroid) 75 mcg PO DAILY@0600 [facility] [place] Last Admin: 07/23/19 05:31 Dose: 75 mcg Documented by: Linagliptin (Tradjenta) 5 mg PO DAILY [facility] [place] Last Admin: 07/23/19 09:09 Dose: 5 mg Documented by: Melatonin (Melatonin) 3 mg PO QHS PRN PRN Reason: SLEEP Morphine Sulfate () 2 mg IV Q3H PRN PRN PRN Reason: Pain Score 6-10/10 Last Admin: 07/20/19 20:15 Dose: 2 mg Documented by: Nitroglycerin (Nitro-Dur) 0.4 mg TRANSDERM. DAILY [facility] [place] Last Admin: 07/23/19 09:05 Dose: Not Given Documented by: Nitroglycerin (Nitrostat) 0.4 mg SUBLINGUAL Q5M PRN PRN Reason: ANGINA Oxycodone HCl (Oxyir) 5 mg PO Q4H PRN PRN PRN Reason: Pain Score 4-5/10 Last Admin: 07/22/19 09:00 Dose: 5 mg Documented by: Pantoprazole Sodium (Protonix) 40 mg PO BID [facility] Last Admin: 07/23/19 09:07 Dose: 40 mg Documented by: Paroxetine HCl (Paxil) 30 mg PO DAILY [facility] Last Admin: 07/23/19 09:07 Dose: 30 mg Documented by: Polyethylene Glycol (Miralax) 17 gm PO DAILY [facility] Last Admin: 07/23/19 09:37 Dose: 17 gm Documented by: Promethazine HCl (Phenergan Suppository) 25 mg RECTAL Q4H PRN PRN PRN Reason: NAUSEA Promethazine HCl (Phenergan Tablet) 25 mg PO Q6H PRN PRN PRN Reason: NAUSEA Ranolazine (Ranexa) 1,000 mg PO BID [facility] [place] Last Admin: 07/23/19 09:07 Dose: 1,000 mg Documented by: Senna (Senokot) 1 tablet PO BID [facility] [place] Last Admin: 07/23/19 09:13 Dose: 1 tablet Documented by: Sodium Chloride () 10 - 40 ml IV UD PRN PRN Reason: SALINE FLUSH Last Admin: 07/20/19 20:16 Dose: 10 ml Documented by: Medical Necessity - Tobacco Use Smoking Status: Never smoker Tobacco Use: Non-smoker, Secondhand Assessment/Plan All Active Problems (Last Updated 07/19/19 @ 14:44 by Viv Toribio) Pancytopenia (Acute) Lymphadenopathy, axillary (Acute) 1. Acute kidney injury. No prior SCr for comparison. Renal US did not show hydronephrosis. Kidney sizes are normal. No evidence of obstructive uropathy. ANY is likely ATN. Although less likely, we will need to consider HRS given her history of cirrhosis. She is pancytopenic, but her cytopenias are stable. So, it is less likely to be atypical HUS. Other possibility is that this is mainly CKD from T2DM as we have no prior SCr for comparison. We should try to obtain any available SCr result from her PCP's office on Wednesday07/24/19. UA showed 100 protein with Pro/Cr 1100 mg/g UPCR and SPEP are pending Cr is slightly higher Will resume isotonic IVF due to acidosis There is no need for kidney replacement therapy at this time, but will monitor closely. Medications reviewed. Agree with not restarting metformin. 2. Acidosis. Serum HCO3 worsened. Will resume isotonic NaHC03 drip at 75 cc/hour Will monitor serum HCO3. 3. Hyperkalemia. [place] ANY. resolved Will monitor. Limit K in diet to , 2 g/day for now. 4. HTN. BP is acceptable. Not on ACEI/ARB. Will monitor. 5. L pubic ramus fracture. Pain control as per hospital medicine service Renal team will continue to follow.Please call if any question or concern at [phone] Jose Riggins MD
[2019-07-23] MEDS: 0.9% Saline Lock 10 ML Syringe IV (20:11)
[2019-07-23] MEDS: Atorvastatin Calcium 10 MG Tablet PO (22:33)
[2019-07-23 22:46] LABS: Bedside Glucose 109 mg/dL (70-110)
[2019-07-24] VITALS (13 sets, daily range): BP systolic 134–180; BP diastolic 56–64; PULSE 49–57; RESP 16–20; TEMP 36.6–36.9; O2SAT 100
[2019-07-24] MEDS: 0.9% Saline Lock 10 ML Syringe IV (03:40)
[2019-07-24] MEDS: hydrALAZINE 20 MG/ML Vial 10 MG IV (04:38)
[2019-07-24] MEDS: Levothyroxine 75 MCG Tablet PO (05:51)
[2019-07-24 06:02] LABS: Absolute Lymphocyte Count 0.68 X10^3/uL (0.83-4.51); Eosinophil# 0.11 X10^3/uL; Eosinophils% 2.7 % (0-5); Hemoglobin 7.7 g/dL (12.0-15.0); Lymphocyte # 0.68 X10^3/ul (4.0); Lymphocyte % 16.5 % (19-41); Mean Corp Hgb Conc 32.1 g/dL (32-36); Mean Corpuscular Hgb 29.6 pg (27.0-32.0); Mean Corpuscular Volume 92.3 fL (81-99); Mean Platelet Vol. 10.1 fl (6.2-12.0); Monocyte# 0.27 X10^3/uL; Monocyte% 6.6 % (0-10); NRBC Flagged by Analyzer 0 % (0-5); Neutrophil # 3.02 X10^3/uL (2.7-7.7); Neutrophil % 73.2 % (47-70); Platelet Count 106 K/mm3 (150-450); RBC Distribution Width CV 17.6 % (11.6-14.6); RBC Distribution Width SD 59.4 fl (35.1-43.9); White Blood Count 4.1 K/mm3 (4.4-11.0)
[2019-07-24 06:18] LABS: Anion Gap 10 (5-15); BUN 51 mg/dL (7-18); BUN/Creat Ratio 16.4 RATIO (10-20); Calcium,Total 7.5 mg/dL (8.5-10.1); Chloride 116 mmol/L (98-107); Creatinine, Serum 3.11 mg/dL (0.55-1.02); EST Glomerular Filtration Rate 16 mL/min (>60); Est Glom Filt Rate - Afr Amer 19 mL/min (>60); Estimated Creatinine Clearance 15.36 ml/min; Glucose 123 mg/dL (74-106); Magnesium 1.5 mg/dL (1.6-2.6); Potassium 4.3 mmol/L (3.5-5.1); Sodium Level 140 mmol/L (136-145)
[2019-07-24 06:35] LABS: Bedside Glucose 113 mg/dL (70-110)
[2019-07-24 09:16] LABS: Homocysteine 15.6 umol/L (3.2-10.7)
[2019-07-24] MEDS: amLODIPine 10 MG Tablet PO (09:29)
[2019-07-24] MEDS: Polyethylene Glycol 3350 17 GM PACKET PO (09:29)
[2019-07-24] MEDS: LINAGLIPTIN 5 MG TABLET PO (09:29)
[2019-07-24] MEDS: Clopidogrel Bisulfate 75 MG Tablet PO (09:30)
[2019-07-24] MEDS: PARoxetine 10 MG Tablet 30 MG PO (09:30)
[2019-07-24] MEDS: Cholestyramine/Sucrose 4 GM/PACKET PO ×2 (09:31→21:20)
[2019-07-24] MEDS: Ranolazine 500 MG Tablet 1000 MG PO ×2 (09:31→21:20)
[2019-07-24] MEDS: Pantoprazole Sodium 40 MG Tablet PO ×2 (09:31→21:21)
[2019-07-24] MEDS: Senna Tablet 1 TABLET PO ×2 (09:44→21:20)
[2019-07-24 11:55] LABS: Bedside Glucose 151 mg/dL (70-110)
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
[2019-07-24] MEDS: Glucerna Shake 120 ML LIQUID PO ×3 (13:00→21:19)
--- NOTE | 2019-07-24 15:37 | CASEMGMT ---
[facility] faxed updates to Juan José Vaz. Anali PAINTING MARKETING SERVICES COORDINATOR
[2019-07-24] MEDS: Acetaminophen 325 MG Tablet 650 MG PO (15:44)
[2019-07-24 17:21] LABS: Bedside Glucose 135 mg/dL (70-110)
--- NOTE | 2019-07-24 17:21 | PN.RENAL_ITS ---
Subjective: no new events - Physical Exam Vitals/I&O's: Vital Signs Temp Pulse Resp BP Pulse Ox 97.9 F 52 L 16 134/64 H 100 07/24/19 15:20 07/24/19 15:20 07/24/19 15:20 07/24/19 15:20 07/24/19 15:20 Oxygen Flow Rate (L/min) 2 Oxygen Delivery Method Nasal Cannula Weight: 98.6 kg Body Mass Index (BMI) 36.1 Intake and Output for Last 24 Hours 07/22/19 07/23/19 07/24/19 23:59 23:59 23:59 Intake Total 3309.17 / 3786.25 3741.67 / 3741.67 2050.00 / 205.00 Output Total 100 / 160 530 / 530 350 / 350 Balance 3209.17 / 3626.25 3211.67 / 3211.67 1700.00 / 1700.00 General: Alert, Oriented x3, Cooperative HEENT: Atraumatic, PERRLA, EOMI, Normocephalic Neck: Supple, No JVD, Negative Carotid Bruits Lungs: Clear to auscultation, Normal air movement Cardiovascular: Regular rate, No murmurs Abdomen: Bowel Sounds Present, Soft, Non Tender Extremities: No edema, Capillary Refill Less than 3 Seconds Skin: No rashes, No breakdown Musculoskeletal: No Tenderness to Palpation of Joints or Extremities Neurological: Cranial nerves II-XII grossly intact Psych/Mental Status: Normal Affect, Appropriate Microbiology Past 72 Hours 07/21/19 13:30 Urine Catheter - Roblero Urine Culture - Final Klebsiella pneumoniae sp pneum Laboratory Results 07/23/19 06:07: Total Protein (PEP) Pending, Globulin COFFEE BREAK ATTENDANT, Ur Total Protein 24 Hr Pending, Urine Total Protein Pending, Urine Albumin Pending, U Xahoq-0-Uncltodd Pending, U Rviqz-5-Pufwcpfi Pending, U Beta Globulin Pending, U Gamma Globulin Pending, U PEP M-Roberto COFFEE BREAK ATTENDANT, U PEP M-Roberto 24 Hr COFFEE BREAK ATTENDANT, IgG Pending, IgA Pending, IgM Pending, Immunofixation Screen COFFEE BREAK ATTENDANT, Albumin (ROMEL) Pending, Albumin/Globulin (ROMEL) Pending, Qawzh-9-Kfdruaaqe ROMEL Pending, Xkmbs-0-Srhhozwdf ROMEL Pending, Beta- Globulins (ROMEL) Pending, Gamma Globulins (ROMEL) Pending, ROMEL M-Roberto Pending, ROMEL Comments COFFEE BREAK ATTENDANT, ROMEL Interpretation COFFEE BREAK ATTENDANT, Urine Immunofixation COFFEE BREAK ATTENDANT, Urine ROMEL Interpret COFFEE BREAK ATTENDANT, Ur Immunofix PEP Note COFFEE BREAK ATTENDANT 07/23/19 22:32: POC Glucose 109 07/24/19 05:35: WBC 4.1 L, RBC 2.60 L, Hgb 7.7 L, Hct 24.0 L, MCV 92.3, MCH 29.6, MCHC 32.1, RDW Std Deviation 59.4 H, RDW Coeff of Rachel 17.6 H, Plt Count 106 L, MPV 10.1, Immature Gran % (Auto) 1.000 H, Neut % (Auto) 73.2 H, Lymph % (Auto) 16.5 L, Elbert % (Auto) 6.6, Eos % (Auto) 2.7, Baso % (Auto) 0.0, Absolute Neuts (auto) 3.0, Absolute Lymphs (auto) 0.68 L, Nucleated RBC % 0 07/24/19 05:35: Sodium 140, Potassium 4.3, Chloride 116 H, Carbon Dioxide 14.0 L , Anion Gap 10, BUN 51 H, Creatinine 3.11 H, Estim Creat Clear Calc 15.36, Est GFR (MDRD) Af Amer 19 L, Est GFR (MDRD) Non-Af 16 L, BUN/Creatinine Ratio 16.4, Glucose 123 H, Calcium 7.5 L, Magnesium 1.5 L 07/24/19 06:24: POC Glucose 113 H 07/24/19 08:32: Homocysteine 15.6 H 07/24/19 11:49: POC Glucose 151 H 07/24/19 17:09: POC Glucose Pending Current Medications Acetaminophen (Tylenol) 650 mg PO Q6H PRN PRN PRN Reason: Pain Score 1-07/06 Last Admin: 07/24/19 15:44 Dose: 650 mg Documented by: Amlodipine Besylate (Norvasc) 10 mg PO DAILY [facility] Last Admin: 07/24/19 09:29 Dose: 10 mg Documented by: Atorvastatin Calcium (Lipitor) 10 mg PO QHS [facility] Last Admin: 07/23/19 22:33 Dose: 10 mg Documented by: Cholestyramine Resin (Questran 4gm Packet) 4 gm PO BID [facility] Last Admin: 07/24/19 09:31 Dose: 4 gm Documented by: Clopidogrel Bisulfate (Plavix) 75 mg PO DAILY [facility] Last Admin: 07/24/19 09:30 Dose: 75 mg Documented by: Dextrose (D50w Syringe) 0 gm IV X1 PRN; Protocol PRN Reason: Hypoglycemia Glucagon () 1 mg IM .X1 PRN PRN Reason: Hypoglycemia Hydralazine HCl (Apresoline Iv) 10 mg IV Q4H PRN PRN PRN Reason: for SBP > 150 Last Admin: 07/24/19 04:38 Dose: 10 mg Documented by: Sodium Chloride () 500 mls @ 15 mls/hr IV PRN PRN PRN Reason: Blood Transfusion Ceftriaxone Sodium 1 gm/ N/A 50 mls @ 100 mls/hr IV Q24 [facility] Last Infusion: 07/24/19 10:14 Dose: Infused Documented by: Sodium Bicarbonate 150 meq/ (Dextrose) 1,150 mls @ 100 mls/hr IV .[id number] [facility] Last Admin: 07/24/19 08:22 Dose: 100 mls/hr Documented by: Insulin Human Lispro (Humalog Kwikpen (Bkc)) 0 unit SC ACHS [facility]; Protocol Last Admin: 07/24/19 12:58 Dose: Not Given Documented by: Isosorbide Mononitrate (Imdur) 120 mg PO DAILY [facility] Last Admin: 07/24/19 09:30 Dose: 120 mg Documented by: Levothyroxine Sodium (Synthroid) 75 mcg PO DAILY@0600 [facility] Last Admin: 07/24/19 05:51 Dose: 75 mcg Documented by: Linagliptin (Tradjenta) 5 mg PO DAILY [facility] Last Admin: 07/24/19 09:29 Dose: 5 mg Documented by: Melatonin (Melatonin) 3 mg PO QHS PRN PRN Reason: SLEEP Morphine Sulfate () 2 mg IV Q3H PRN PRN PRN Reason: Pain Score 6-10/10 Last Admin: 07/20/19 20:15 Dose: 2 mg Documented by: Nitroglycerin (Nitro-Dur) 0.4 mg TRANSDERM. DAILY [facility] Last Admin: 07/24/19 09:30 Dose: Not Given Documented by: Nitroglycerin (Nitrostat) 0.4 mg SUBLINGUAL Q5M PRN PRN Reason: ANGINA Nutritional Formula (Lactose Free) (Glucerna Shake) 120 ml PO 4X/DAY [facility] Last Admin: 07/24/19 13:00 Dose: 120 ml Documented by: Oxycodone HCl (Oxyir) 5 mg PO Q4H PRN PRN PRN Reason: Pain Score 4-5/10 Last Admin: 07/22/19 09:00 Dose: 5 mg Documented by: Pantoprazole Sodium (Protonix) 40 mg PO BID [facility] Last Admin: 07/24/19 09:31 Dose: 40 mg Documented by: Paroxetine HCl (Paxil) 30 mg PO DAILY [facility] Last Admin: 07/24/19 09:30 Dose: 30 mg Documented by: Polyethylene Glycol (Miralax) 17 gm PO DAILY [facility] Last Admin: 07/24/19 09:29 Dose: 17 gm Documented by: Promethazine HCl (Phenergan Suppository) 25 mg RECTAL Q4H PRN PRN PRN Reason: NAUSEA Promethazine HCl (Phenergan Tablet) 25 mg PO Q6H PRN PRN PRN Reason: NAUSEA Ranolazine (Ranexa) 1,000 mg PO BID [facility] Last Admin: 07/24/19 09:31 Dose: 1,000 mg Documented by: Senna (Senokot) 1 tablet PO BID [facility] Last Admin: 07/24/19 09:44 Dose: 1 tablet Documented by: Sodium Chloride () 10 - 40 ml IV UD PRN PRN Reason: SALINE FLUSH Last Admin: 07/24/19 03:40 Dose: 10 ml Documented by: Medical Necessity - Tobacco Use Smoking Status: Never smoker Tobacco Use: Non-smoker, Secondhand Assessment/Plan All Active Problems (Last Updated 07/19/19 @ 14:44 by Viv Toribio) Pancytopenia (Acute) Lymphadenopathy, axillary (Acute) 1. Acute kidney injury. called PCPs office today. last known creatinine was 2.2 in december 2018 and 2.6 early this month she has significant CKD Renal US did not show hydronephrosis. No evidence of obstructive uropathy. She is pancytopenic, but her cytopenias are stable. So, it is less likely to be atypical HUS. UA showed 100 protein with Pro/Cr 1100 mg/g UPCR and SPEP are pending cr better 2. Acidosis. better. continue bicarbonate 3. Hyperkalemia. resolved Will monitor. 4. HTN. BP is acceptable. Not on ACEI/ARB. Will monitor. 5. L pubic ramus fracture. Pain control as per hospital medicine service
[2019-07-24] MEDS: Atorvastatin Calcium 10 MG Tablet PO (21:20)
[2019-07-25] VITALS (7 sets, daily range): BP systolic 128–145; BP diastolic 56–76; PULSE 53–59; RESP 17–18; TEMP 36.4–36.8; O2SAT 96–100
[2019-07-25 00:16] LABS: Bedside Glucose 135 mg/dL (70-110)
[2019-07-25] MEDS: Levothyroxine 75 MCG Tablet PO (04:56)
[2019-07-25 06:00] LABS: Absolute Lymphocyte Count 0.68 X10^3/uL (0.83-4.51); Eosinophil# 0.09 X10^3/uL; Eosinophils% 2.2 % (0-5); Hematocrit 25.4 % (37-47); Hemoglobin 8.2 g/dL (12.0-15.0); Lymphocyte # 0.68 X10^3/ul (4.0); Lymphocyte % 16.3 % (19-41); Mean Corp Hgb Conc 32.3 g/dL (32-36); Mean Corpuscular Hgb 29.8 pg (27.0-32.0); Mean Corpuscular Volume 92.4 fL (81-99); Mean Platelet Vol. 10.4 fl (6.2-12.0); Monocyte# 0.32 X10^3/uL; Monocyte% 7.7 % (0-10); NRBC Flagged by Analyzer 0 % (0-5); Neutrophil # 3.03 X10^3/uL (2.7-7.7); Neutrophil % 72.8 % (47-70); Platelet Count 117 K/mm3 (150-450); RBC Distribution Width CV 17.1 % (11.6-14.6); RBC Distribution Width SD 56.9 fl (35.1-43.9); Red Blood Count 2.75 M/mm3 (4.2-5.4); White Blood Count 4.2 K/mm3 (4.4-11.0)
[2019-07-25 06:17] LABS: Anion Gap 8 (5-15); BUN 50 mg/dL (7-18); Calcium,Total 7.6 mg/dL (8.5-10.1); Chloride 110 mmol/L (98-107); Creatinine, Serum 3.13 mg/dL (0.55-1.02); EST Glomerular Filtration Rate 16 mL/min (>60); Est Glom Filt Rate - Afr Amer 19 mL/min (>60); Estimated Creatinine Clearance 15.26 ml/min; Glucose 133 mg/dL (74-106); Potassium 4.3 mmol/L (3.5-5.1); Sodium Level 138 mmol/L (136-145)
[2019-07-25 06:50] LABS: Bedside Glucose 128 mg/dL (70-110)
--- NOTE | 2019-07-25 08:08 | PCM.TXEXTCAR ---
- Diet 07/19/19 19:47 Diet: Calorie Controlled Food consistency:: Regular Liquid Consistency:: Regular/Thin Dietary Modifications:: Low Potassium Restriction Is pt able to select menu?: Yes How many daily calories?: 1800 calorie - Routine Orders/Code Status Routine Lab Work: CBC - 2-3 days, BMP - 2-3 days Code Status: Full Code - Wound(s) Left hand Wound Type: Skin Tear Left elbow Wound Type: Skin Tear Left upper arm Wound Type: Skin Tear Lt knee Wound Type: Abrasion R upper arm Wound Type: Skin Tear rfa iv SITE Wound Type: IV site - Therapies Weight Bearing: Weight bearing as tolerated Physical Therapy: Eval and Treat Occupational Therapy: Eval and Treat - Allergies/Procedures Done in Hospital Allergies/Adverse Reactions: Allergies codeine Allergy (Verified 07/19/19 16:15) Unknown - Type of Care/Length of Stay Estimated LOS: Convalescent Care Less Than 30 days Type of Care Needed: Skilled Rehab Potential: Good Prognosis: Good - Additional Orders/Day of Discharge Day of Discharge: 07/25/19 - Dietary and Speech Recommendations Dietitian Recommendations/Changes: Recommend 1800 calorie controlled, cardiac, low sodium diet. Continue w/ potassium restriction until labs improve. Will provide Glucerna 120 mL 4x/day d/t inadequate PO intake. - Follow Up Care Primary Care Physician: Michael Moraes MD [Primary Care Provider] - Please follow up with your Primary Care Physician in: 3-5 days
--- NOTE | 2019-07-25 10:11 | CASEMGMT ---
Patient is ready for discharge to [facility]. SW called [facility] and arranged for patient to get picked up at 1p via cot. SW notified patient, cost report clerk, Kika at [facility], and RN. Patient did not need SW to call anyone for her. Convalescent was completed on HENS. Plan: d/c to [facility] under skilled level of care on a convalescent stay. [facility] transported via cot. Anali PAINTING MSW
--- NOTE | 2019-07-25 10:23 | PHA.DC.MR ---
Pharmacy Service has performed discharge medication reconciliation for this patient upon transfer to [facility]. The patient's discharge medication list was reviewed for discrepancies and discrepancies were resolved. Home Medications Amlodipine [Norvasc] 5 mg PO DAILY 07/19/19 Atenolol [Tenormin] 100 mg PO DAILY 07/19/19 Atorvastatin Calcium [Lipitor] 10 mg PO DAILY 07/19/19 Cholestyramine/Aspartame [Cholestyramine Light Packet] 4 gm PO BID 07/19/19 Clopidogrel Bisulfate [Plavix] 75 mg PO DAILY 07/19/19 Isosorbide Mononitrate [Isosorbide Mononitrate ER] 120 mg PO DAILY 07/19/19 Levothyroxine [Synthroid] 75 mcg PO DAILY 07/19/19 Melatonin 3 mg PO PRN PRN 07/19/19 Nitroglycerin [Nitro-Dur] 0.4 mg TRANSDERM. DAILY 07/19/19 Nitroglycerin [Nitrostat] 0.4 mg SL PRN PRN 07/19/19 Pantoprazole Sodium [Protonix] 40 mg PO BID 07/19/19 Paroxetine HCl [Paxil] 30 mg PO DAILY 07/19/19 Promethazine HCl 25 mg PO PRN PRN 07/19/19 Promethazine HCl [Phenergan] 25 mg KS PRN PRN 07/19/19 Ranolazine [Ranexa] 1,000 mg PO BID 07/19/19 Furosemide [Lasix] 40 mg PO PRN PRN #0 07/25/19 Linagliptin [Tradjenta] 5 mg PO DAILY tab 07/25/19
[2019-07-25] MEDS: amLODIPine 10 MG Tablet PO (11:23)
[2019-07-25] MEDS: PARoxetine 10 MG Tablet 30 MG PO (11:23)
[2019-07-25] MEDS: Clopidogrel Bisulfate 75 MG Tablet PO (11:23)
[2019-07-25] MEDS: Pantoprazole Sodium 40 MG Tablet PO (11:24)
[2019-07-25] MEDS: LINAGLIPTIN 5 MG TABLET PO (11:24)
[2019-07-25] MEDS: Cholestyramine/Sucrose 4 GM/PACKET PO (11:24)
[2019-07-25] MEDS: Ranolazine 500 MG Tablet 1000 MG PO (11:24)
[2019-07-25] MEDS: Senna Tablet 1 TABLET PO (11:24)
--- NOTE | 2019-07-25 12:11 | CHAPLAIN ---
Type of Pastoral Visit ___ Initial Visit _x__ Follow-up Visit ___ On-call Visit ___ General Patient Visit ___ Spiritual Assessment ___ Family Conference ___ Bereavement ___ Rapid Response ___ Code Blue ___ Other (describe below) Pastoral Care Referral From _x__ Patient ___ Family ___ Nurse ___ Physician ___ Respiratory Clinician ___ Aerospace Medicine Physician ___ Other (describe below) Sacrament/Intervention _x__ Active listening ___ Anointing ___ Buddhism ___ Bereavement ___ Communion ___ Julia exploration ___ ___ Life review _x__ Prayer ___ Reconciliation ___ Sacrament of Sick _x__ Supportive presence ___ Wedding ___ Other (describe below) Pastoral Comments
--- NOTE | 2019-07-25 13:07 | PN.RENAL_ITS ---
Subjective: no new complaints - Physical Exam Vitals/I&O's: Vital Signs Temp Pulse Resp BP Pulse Ox 97.5 F L 56 L 17 145/56 H 99 07/25/19 09:10 07/25/19 09:10 07/25/19 09:10 07/25/19 09:10 07/25/19 09:10 Oxygen Flow Rate (L/min) 2 Oxygen Delivery Method Nasal Cannula Weight: 98.6 kg Body Mass Index (BMI) 36.1 Intake and Output for Last 24 Hours 07/23/19 07/24/19 07/25/19 23:59 23:59 23:59 Intake Total 3741.67 / 3741.67 3760.00 / 3760.00 1250 / 1250 Output Total 530 / 530 550 / 550 200 / 200 Balance 3211.67 / 3211.67 3210.00 / 3210.00 1050 / 1050 General: Alert, Oriented x3, Cooperative HEENT: Atraumatic, PERRLA, EOMI, Normocephalic Neck: Supple, No JVD, Negative Carotid Bruits Lungs: Clear to auscultation, Normal air movement Cardiovascular: Regular rate, No murmurs Abdomen: Bowel Sounds Present, Soft, Non Tender Extremities: No edema, Capillary Refill Less than 3 Seconds Skin: No rashes, No breakdown Musculoskeletal: No Tenderness to Palpation of Joints or Extremities Neurological: Cranial nerves II-XII grossly intact Psych/Mental Status: Normal Affect, Appropriate Microbiology Past 72 Hours 07/22/19 16:20 Blood Culture (Wb) - Right Hand Blood Culture - Preliminary No growth in 48 hours. 07/22/19 15:15 Blood Culture (Wb) - No Site/Description Given Blood Culture - Preliminary No growth in 48 hours. 07/21/19 13:30 Urine Catheter - Roblero Urine Culture - Final Klebsiella pneumoniae sp pneum Laboratory Results 07/24/19 17:09: POC Glucose 135 H 07/24/19 21:18: POC Glucose 135 H 07/25/19 05:24: WBC 4.2 L, RBC 2.75 L, Hgb 8.2 L, Hct 25.4 L, MCV 92.4, MCH 29.8, MCHC 32.3, RDW Std Deviation 56.9 H, RDW Coeff of Rachel 17.1 H, Plt Count 117 L, MPV 10.4, Immature Gran % (Auto) 1.000 H, Neut % (Auto) 72.8 H, Lymph % (Auto) 16.3 L, [place] % (Auto) 7.7, Eos % (Auto) 2.2, Baso % (Auto) 0.0, Absolute Neuts (auto) 3.0, Absolute Lymphs (auto) 0.68 L, Nucleated RBC % 0 07/25/19 05:24: Sodium 138, Potassium 4.3, Chloride 110 H, Carbon Dioxide 20.0 L , Anion Gap 8, BUN 50 H, Creatinine 3.13 H, Estim Creat Clear Calc 15.26, Est GFR (MDRD) Af Amer 19 L, Est GFR (MDRD) Non-Af 16 L, BUN/Creatinine Ratio 16.0, Glucose 133 H, Calcium 7.6 L 07/25/19 06:39: POC Glucose 128 H Current Medications Acetaminophen (Tylenol) 650 mg PO Q6H PRN PRN PRN Reason: Pain Score 1-1010 Last Admin: 07/24/19 15:44 Dose: 650 mg Documented by: Amlodipine Besylate (Norvasc) 10 mg PO DAILY [facility] Last Admin: 07/25/19 11:23 Dose: 10 mg Documented by: Atorvastatin Calcium (Lipitor) 10 mg PO QHS [facility] Last Admin: 07/24/19 21:20 Dose: 10 mg Documented by: Cholestyramine Resin (Questran 4gm Packet) 4 gm PO BID [facility] Last Admin: 07/25/19 11:24 Dose: 4 gm Documented by: Clopidogrel Bisulfate (Plavix) 75 mg PO DAILY [facility] Last Admin: 07/25/19 11:23 Dose: 75 mg Documented by: Dextrose (D50w Syringe) 0 gm IV X1 PRN; Protocol PRN Reason: Hypoglycemia Glucagon () 1 mg IM .X1 PRN PRN Reason: Hypoglycemia Hydralazine HCl (Apresoline Iv) 10 mg IV Q4H PRN PRN PRN Reason: for SBP > 150 Last Admin: 07/24/19 04:38 Dose: 10 mg Documented by: Sodium Chloride () 500 mls @ 15 mls/hr IV PRN PRN PRN Reason: Blood Transfusion Ceftriaxone Sodium 1 gm/ N/A 50 mls @ 100 mls/hr IV Q24 [facility] Last Infusion: 07/24/19 10:14 Dose: Infused Documented by: Sodium Bicarbonate 150 meq/ (Dextrose) 1,150 mls @ 100 mls/hr IV .[id number] [facility] Last Infusion: 07/25/19 10:00 Dose: Infused Documented by: Insulin Human Lispro (Humalog Kwikpen (Bkc)) 0 unit SC ACHS [facility]; Protocol Last Admin: 07/25/19 11:21 Dose: Not Given Documented by: Isosorbide Mononitrate (Imdur) 120 mg PO DAILY [facility] Last Admin: 07/25/19 11:23 Dose: 120 mg Documented by: Levothyroxine Sodium (Synthroid) 75 mcg PO DAILY@0600 [facility] Last Admin: 07/25/19 04:56 Dose: 75 mcg Documented by: Linagliptin (Tradjenta) 5 mg PO DAILY [facility] Last Admin: 07/25/19 11:24 Dose: 5 mg Documented by: Melatonin (Melatonin) 3 mg PO QHS PRN PRN Reason: SLEEP Morphine Sulfate () 2 mg IV Q3H PRN PRN PRN Reason: Pain Score 6-10/10 Last Admin: 07/20/19 20:15 Dose: 2 mg Documented by: Nitroglycerin (Nitro-Dur) 0.4 mg TRANSDERM. DAILY [facility] Last Admin: 07/25/19 11:23 Dose: 0.4 mg Documented by: Nitroglycerin (Nitrostat) 0.4 mg SUBLINGUAL Q5M PRN PRN Reason: ANGINA Nutritional Formula (Lactose Free) (Glucerna Shake) 120 ml PO 4X/DAY [facility] Last Admin: 07/25/19 11:18 Dose: Not Given Documented by: Oxycodone HCl (Oxyir) 5 mg PO Q4H PRN PRN PRN Reason: Pain Score 4-5/10 Last Admin: 07/22/19 09:00 Dose: 5 mg Documented by: Pantoprazole Sodium (Protonix) 40 mg PO BID [facility] Last Admin: 07/25/19 11:24 Dose: 40 mg Documented by: Paroxetine HCl (Paxil) 30 mg PO DAILY [facility] Last Admin: 07/25/19 11:23 Dose: 30 mg Documented by: Polyethylene Glycol (Miralax) 17 gm PO DAILY [facility] Last Admin: 07/25/19 11:19 Dose: Not Given Documented by: Promethazine HCl (Phenergan Suppository) 25 mg RECTAL Q4H PRN PRN PRN Reason: NAUSEA Promethazine HCl (Phenergan Tablet) 25 mg PO Q6H PRN PRN PRN Reason: NAUSEA Ranolazine (Ranexa) 1,000 mg PO BID [facility] Last Admin: 07/25/19 11:24 Dose: 1,000 mg Documented by: Senna (Senokot) 1 tablet PO BID [facility] Last Admin: 07/25/19 11:24 Dose: 1 tablet Documented by: Sodium Chloride () 10 - 40 ml IV UD PRN PRN Reason: SALINE FLUSH Last Admin: 07/24/19 03:40 Dose: 10 ml Documented by: Medical Necessity - Tobacco Use Smoking Status: Never smoker Tobacco Use: Non-smoker, Secondhand Assessment/Plan All Active Problems (Last Updated 07/19/19 @ 14:44 by Viv Toribio) Pancytopenia (Acute) Lymphadenopathy, axillary (Acute) 1. Acute kidney injury. called PCPs office today. last known creatinine was 2.2 in december 2018 and 2.6 early this month she has significant CKD Renal US did not show hydronephrosis. No evidence of obstructive uropathy. She is pancytopenic, but her cytopenias are stable. So, it is less likely to be atypical HUS. UA showed 100 protein with Pro/Cr 1100 mg/g UPCR and SPEP are pending cr better 2. Acidosis. better. 3. Hyperkalemia. resolved Will monitor. 4. HTN. BP is acceptable. Not on ACEI/ARB. Will monitor. 5. L pubic ramus fracture. Pain control as per hospital medicine service dc today
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
--- NOTE | 2019-07-25 13:35 | NURSING ---
Report called to Mirta nurse at [facility].
[2019-07-26 00:36] LABS: Bedside Glucose 127 mg/dL (70-110)
[2019-07-26 16:08] LABS: Albumin 2.7 g/dL (2.9-4.4); Albumin, Ur 41.2 % (.); Alpha-1-Globulin, Ur 1.8 % (.); Alpha-1-Globulins 0.4 g/dL (0.0-0.4); Alpha-2-Globulins 0.9 g/dL (0.4-1.0); Beta Globulin, Ur 18.7 % (.); Gamma Globulin 0.8 g/dL (0.4-1.8); Gamma Globulin, Ur 28.3 % (.); Immunoglobulin A 287 mg/dL (87-352); Immunoglobulin G 789 mg/dL (700-1600); Immunoglobulin M 52 mg/dL (26-217); M-Spike, Ur % Not Observed % (Not Observed); PROEL- TOTAL PROTEIN 5.6 g/dL (6.0-8.5); Protein, 24Ur 371 mg/24 hr (30-150); Total Protein, Ur 57.1 mg/dL (Not Estab.)
[2019-07-26 19:30] LABS: IFE Result, Ur Comment: (.)
== END 2019-07-25 14:30 | disposition skilled nursing facility (03) | DRG 536 ==
LOC: ED 18:04 → MS3 19:06 → PCU 07-22 15:48
PROVIDERS: Internal Medicine; Internal Medicine Medical Oncology; Internal Medicine Nephrology; Admitting Provider Student in an Organized Health Care Education/Training Program; Emergency Provider Emergency Medicine; Family Provider Family Medicine; PCP Family Medicine; Referring Provider Student in an Organized Health Care Education/Training Program; Visit Provider Family Medicine
DX: S32.512A Fracture of superior rim of left pubis, initial encounter for closed fracture (principal); N18.4 Chronic kidney disease, stage 4 (severe); D61.818 Other pancytopenia; N17.9 Acute kidney failure, unspecified; N30.00 Acute cystitis without hematuria; S32.592A Other specified fracture of left pubis, initial encounter for closed fracture; V00.831A Fall from motorized mobility scooter, initial encounter; W10.1XXA Fall (on)(from) sidewalk curb, initial encounter; E03.9 Hypothyroidism, unspecified; E87.5 Hyperkalemia; I12.9 Hypertensive chronic kidney disease with stage 1 through stage 4 chronic kidney disease, or unspecified chronic kidney disease; G47.33 Obstructive sleep apnea (adult) (pediatric); E11.22 Type 2 diabetes mellitus with diabetic chronic kidney disease; I25.10 Atherosclerotic heart disease of native coronary artery without angina pectoris; R53.81 Other malaise; B96.1 Klebsiella pneumoniae [K. pneumoniae] as the cause of diseases classified elsewhere; Z68.36 Body mass index [BMI] 36.0-36.9, adult; Z79.84 Long term (current) use of oral hypoglycemic drugs; Z95.1 Presence of aortocoronary bypass graft; R59.1 Generalized enlarged lymph nodes
CPT/HCPCS: 36415; 71045; 73502; 76770; 80048; 80053; 81001; 82040; 82570; 82607; 82728; 82746; 82784; 82962; 83090; 83540; 83550; 83605; 83615; 83735; 83883; 83921; 84156; 84165; 84166; 84300; 85025; 85027; 85045; 85610; 85652; 85730; 86140; 86334; 86335; 86850; 86900; 86901; 86920; 87040; 87077; 87086; 87088; 87186; 94762; 97110; 97162; 97166; 97535; 97802; 97803; 99285; J7030; J7040; P9016; A4216